=== PATIENT | male | born 1960 | race Caucasian/White ===

== ENCOUNTER 2016-11-09 15:09 | Inpatient (IN) ==
[2016-11-09] MEDS ORDERED: Ipratropium/Albuterol Neb 3 ML IH ONE (15:53)
[2016-11-09] MEDS ORDERED: methylPREDNISolone 125 MG/2 ML VIAL IVP ONE (15:53)
[2016-11-09] MEDS ORDERED: Aspirin 81 MG TAB.CHEW PO STA (15:54)
[2016-11-09 16:11] LABS: Basophils % 0.2 %; Hematocrit 33.8 % (37.5-50.1); Red Cell Distribution Width 16.8 % (11.5-14.5)
[2016-11-09 16:13] LABS: Eosinophils # 0.3 K/mcL (0.0-0.6); Eosinophils % 2.2 %; Hemoglobin 9.7 g/dL (12.9-16.9); Immature Granulocytes % 0.5 % (0-4); Lymphocytes # 1.6 K/mcL (0.6-4.6); Lymphocytes % 12.7 %; Mean Corpuscular HGB Conc 28.7 g/dL (31.6-35.5); Mean Corpuscular Hemoglobin 28.1 pg (28.0-33.3); Mean Platelet Volume 11.1 fL (9.4-12.4); Monocytes # 1.3 K/mcL (0.0-1.3); Monocytes % 10.2 %; Neutrophils # 9.4 K/mcL (1.6-8.9); Nucleated Red Blood Cells 0.2 /100 WBC (0); Platelet Count 224 K/mcL (140-400); Red Blood Count 3.45 M/mcL (4.19-5.50); Segmented Neutrophils % 74.2 %
[2016-11-09 16:23] LABS: BUN/Creatinine Ratio 10 (6-26); Blood Urea Nitrogen 7 mg/dL (8-26); Calcium 9.4 mg/dL (8.6-10.8); Carbon Dioxide 39 mEq/L (19-29); Chloride 86 mEq/L (98-109); Glucose 114 mg/dL (70-99); Osmolality,Calculated 271 (280-300); Potassium 4.5 mEq/L (3.5-4.5); Sodium 131 mEq/L (136-145); eGFR For African Americans > 60 (> 60); eGFR For Non-African Americans > 60 (> 60)
[2016-11-09 17:01] LABS: Platelet Estimate Normal (Normal); Polychromasia 1+ (Not Present); Stomatocytes 1+ (Not Present)
[2016-11-09 17:36] LABS: VBG HCO3 44.2 mEq/L (21-27); VBG PH 7.29 pH Units (7.32-7.42)
--- NOTE | 2016-11-09 18:20 | Emergency Department Note ---
Disposition Clinical Impression: COPD exacerbation CHF (congestive heart failure) Qualifiers: Congestive heart failure type: unspecified congestive heart failure type Congestive heart failure chronicity: unspecified congestive heart failure chronicity Qualified Code(s): I50.9 - Heart failure, unspecified Disposition: Admitted As Inpatient Condition: Serious SOB HPI - General Chief Complaint: ED Shortness of Breath/Dyspnea Stated Complaint: KENNA Time Seen by Provider: 11/09/16 15:47 Source: patient, family Mode of arrival: wheelchair Limitations: no limitations Nursing Notes Reviewed: Yes Vital Signs Reviewed: Yes - History of Present Illness Patient here for evaluation of shortness of breath. Patient was sent from outpatient office for evaluation of shortness of breath. Patient appeared dyspneic and was sent for further evaluation. Patient lives at home with 2 L of oxygen on a daily basis. Patient was recently admitted to a different hospital and treated for COPD exacerbation and pneumonia. Patient finished his outpatient antibiotics including what is likely Levaquin. Patient states that he has been feeling more short of breath at home and has increased his home oxygen 4 L. Patient had some associated chest pain with exertion earlier today today. Patient's chest pain last approximately minutes and self resolved. Patient's current symptoms include dyspnea at rest. Patient was in the lobby due to extended wait times and was without oxygen. Initial pulse ox reading low. Patient placed on BiPAP secondary to tachypnea and hypoxia. - Related Data Home Medications Medication Instructions Recorded Confirmed Albuterol Sulfate [Albuterol 2 puff IH Q4HR PRN 08/07/15 11/09/16 Inhaler] Aspirin [Adult Low Dose Aspirin EC] 81 mg PO DAILY 08/07/15 11/09/16 Metoprolol XL (24 HR) Succ [Toprol 25 mg PO DAILY 08/07/15 11/09/16 Xl] Omeprazole [PriLOSEC] 20 mg PO DAILY 08/07/15 11/09/16 Oxygen 4 l NS AD 12/19/15 11/09/16 Aclidinium [place] [Tudorza 400 mcg IH BID 11/09/16 11/09/16 Pressair] Ipratropium/Albuterol Neb [Duoneb] 3 ml IH Q4H PRN 11/09/16 11/09/16 Mometasone/Formoterol [Dulera 200 2 puff IH BID 11/09/16 11/09/16 Mcg/5 Mcg Inhaler] Previous Rx's Medication Instructions Recorded Clopidogrel [Plavix] 75 mg PO DAILY #30 tablet 09/20/15 Allergies Allergy/AdvReac Type Severity Reaction Status Date / Time No Known Allergies Allergy Verified 12/19/15 07:05 Review of Systems: CONSTITUTIONAL: Weakness and fatigue No weight loss, fever, chills, HEENT: Eyes: No visual changes. Ears, Nose, Throat: No hearing loss, difficulty talking or unable to swallow. SKIN: No rash or itching. CARDIOVASCULAR: Chest pain RESPIRATORY: Shortness of breath GASTROINTESTINAL: No anorexia, nausea, vomiting or diarrhea. No abdominal pain or blood. GENITOURINARY: No burning on urination or hematuria. NEUROLOGICAL: No headache, dizziness, syncope, paralysis, ataxia, numbness or tingling in the extremities. No change in bowel or bladder control. MUSCULOSKELETAL: No muscle pain, back pain, joint pain or stiffness. Past Medical History - Past Medical History Medical history: Reports: COPD, hypertension, peripheral artery disease, other Surgical history: Reports: vascular surgery, other Psychiatric history: Reports: anxiety, depression - Social History Smoking Status: Current every day smoker Smokeless Tobacco Status: No Alcohol use: Reports: rarely Drug use: Reports: none Physical Exam General appearance: Tachypnea speaking in partial sentences Eyes: anicteric sclerae, moist conjunctivae; PERRL HENT: Atraumatic; oropharynx clear with moist mucous membranes and no mucosal ulcerations Neck: Normal inspection; Trachea midline; FROM, supple Lungs: Diffusely diminished CV: RRR, no MRGs Abdomen: Soft, non-tender; no rebound or gaurding Extremities: No peripheral edema or extremity lymphadenopathy Skin: Normal temperature; no rash, ulcers or lesions Psych: Appropriate mood and affect Neuro: alert and oriented to person, place and time - General Limitations: no limitations General appearance: alert, in no apparent distress Course - Reevaluation(s) Reevaluation #1: Patient symptoms partially improved with steroids and albuterol treatments. Patient chest x-ray is negative for pneumonia. Concerning for CHF. Patient has acute on chronic respiratory acidosis. Will discuss with the hospitalist team to admit the patient for further management. - Consultations Consultation #1: Discussed with the hospitalist Ramón. Patient except that for admission. Vital Signs Temperature 97.9 F 11/09/16 15:36 Pulse Rate 105 11/09/16 15:36 Respiratory Rate 20 11/09/16 15:36 Blood Pressure 117/68 11/09/16 15:36 O2 Sat by Pulse Oximetry 64 11/09/16 15:36 Temperature 97.9 F 11/09/16 15:36 Pulse Rate 97 11/09/16 19:39 Respiratory Rate 22 11/09/16 20:05 Blood Pressure 130/73 11/09/16 19:39 O2 Sat by Pulse Oximetry 90 11/09/16 20:05 Oxygen Delivery Oxygen Delivery Bipap Shortness of Breath/Dyspnea - Medical Records Medical records reviewed: Yes I reviewed the patient's medical records. - Lab Data Lab results reviewed: Yes I reviewed the patient's lab results. Result diagrams: 11/09/16 16:01 11/09/16 16:01 Lab Results 11/09/16 11/09/16 11/09/16 Range/Units 16:01 16:01 16:01 WBC 12.6 H (4.3-11.1) K/mcL RBC 3.45 L (4.19-5.50) M/mcL Hgb 9.7 L (12.9-16.9) g/dL Hct 33.8 L (37.5-50.1) % MCV 98.0 (83.0-100.0) fL MCH 28.1 (28.0-33.3) pg MCHC 28.7 L (31.6-35.5) g/dL RDW 16.8 H (11.5-14.5) % Plt Count 224 (140-400) K/mcL MPV 11.1 (9.4-12.4) fL Immature Gran % 0.5 (0-4) % Seg Neutrophils % 74.2 % Lymphocytes % 12.7 % Monocytes % 10.2 % Eosinophils % 2.2 % Basophils % 0.2 % Neutrophils # 9.4 H (1.6-8.9) K/mcL Lymphocytes # 1.6 (0.6-4.6) K/mcL Monocytes # 1.3 (0.0-1.3) K/mcL Eosinophils # 0.3 (0.0-0.6) K/mcL Basophils # 0.0 (0.0-0.2) K/mcL Nucleated RBCs/100 WBC 0.2 H (0) /100 WBC Platelet Estimate Normal (Normal) Polychromasia 1+ A (Not Present) Stomatocytes 1+ A (Not Present) VBG pH (7.32-7.42) pH Units VBG pCO2 (41-51) mmHg VBG pO2 (25-40) mmHg VBG HCO3 (21-27) mEq/L Sodium 131 L (136-145) mEq/L Potassium 4.5 (3.5-4.5) mEq/L Chloride 86 L (98-109) mEq/L Carbon Dioxide 39 H (19-29) mEq/L BUN 7 L (8-26) mg/dL Creatinine 0.71 L (0.72-1.25) mg/dL Est GFR ( Amer) > 60 (> 60) Est GFR (Non-Af Amer) > 60 (> 60) BUN/Creatinine Ratio 10 (6-26) Glucose 114 H (70-99) mg/dL Calculated Osmolality 271 L (280-300) Calcium 9.4 (8.6-10.8) mg/dL Troponin I 0.00 (0-0.03) ng/mL B-Natriuretic Peptide (0-100) pg/mL 11/09/16 11/09/16 Range/Units 16:01 17:21 WBC (4.3-11.1) K/mcL RBC (4.19-5.50) M/mcL Hgb (12.9-16.9) g/dL Hct (37.5-50.1) % MCV (83.0-100.0) fL MCH (28.0-33.3) pg MCHC (31.6-35.5) g/dL RDW (11.5-14.5) % Plt Count (140-400) K/mcL MPV (9.4-12.4) fL Immature Gran % (0-4) % Seg Neutrophils % % Lymphocytes % % Monocytes % % Eosinophils % % Basophils % % Neutrophils # (1.6-8.9) K/mcL Lymphocytes # (0.6-4.6) K/mcL Monocytes # (0.0-1.3) K/mcL Eosinophils # (0.0-0.6) K/mcL Basophils # (0.0-0.2) K/mcL Nucleated RBCs/100 WBC (0) /100 WBC Platelet Estimate (Normal) Polychromasia (Not Present) Stomatocytes (Not Present) VBG pH 7.29 L (7.32-7.42) pH Units VBG pCO2 92 H (41-51) mmHg VBG pO2 41 H (25-40) mmHg VBG HCO3 44.2 H (21-27) mEq/L Sodium (136-145) mEq/L Potassium (3.5-4.5) mEq/L Chloride (98-109) mEq/L Carbon Dioxide (19-29) mEq/L BUN (8-26) mg/dL Creatinine (0.72-1.25) mg/dL Est GFR ( Amer) (> 60) Est GFR (Non-Af Amer) (> 60) BUN/Creatinine Ratio (6-26) Glucose (70-99) mg/dL Calculated Osmolality (280-300) Calcium (8.6-10.8) mg/dL Troponin I (0-0.03) ng/mL B-Natriuretic Peptide 182 H (0-100) pg/mL - Radiology Data Radiology results reviewed: Yes I reviewed the patient's radiology results. - EKG Data EKG attestation: Yes I reviewed and interpreted this EKG. EKG results narrative: EKG shows sinus tachycardia at a ventricular rate of 103. MS interval 131. QRS 106. Patient has no significant ST elevations or depressions. Nonspecific T-wave changes.. Attestation Statement - Attestation Attestation: I personally interviewed and examined this patient and my medical decision- making was reviewed with the Resident Physician, Dr. Pereira. I agree with the documented findings, disposition and treatment plan as described except to the extent set forth below. Patient is a 56-year-old white male with a history of COPD who presents to the emergency department today with gradually worsening shortness of breath over the past week. Patient states last 2 days he has been significantly short of breath and states that he has not been using his nighttime CPAP due to difficulty tolerating the mask. Patient reports he was hospitalized a few weeks ago and [facility] for an exacerbation of his COPD. At that time he was on antibiotics which he has completed as instructed and is no longer on steroids. Patient denies any fevers or chills, does complain of some left chest wall tightness and some nonproductive cough. Patient arrives in respiratory distress with tachypnea and increased work of breathing associated with significant hypoxia on room air. Patient is normally on 2 L nasal cannula oxygen at home at all times. Patient's physical exam findings as documented. Patient was seen on arrival due to low pulse ox, patient was placed on supplemental O2 by nasal cannula, aerosols were initiated, IV steroids were ordered and BiPAP was initiated. Patient had EKG, labs, and chest x-ray for further evaluation of shortness of breath. Patient's EKG was negative for any acute ischemia. Patient's chest x-ray showed cardiomegaly with mild pulmonary congestion no infiltrates. Patient's labs show a mild elevation in his BNP with a negative troponin. Patient's VBG was consistent with CO2 retention and acidosis. We will continue patient on BiPAP at this time, and admit the patient for further evaluation of COPD exacerbation as well as mild CHF. Patient with mild improvement in his work of breathing at this time. Patient remained hemodynamically stable following BiPAP administration.
[2016-11-09] MEDS ORDERED: Ipratropium/Albuterol Neb 3 ML IH PRN (21:43)
[2016-11-09] MEDS ORDERED: Naloxone 0.4 MG/ML INJ IVP PRN (21:45)
[2016-11-09] MEDS ORDERED: Acetaminophen 325 MG TABLET PO PRN (21:45)
--- NOTE | 2016-11-09 21:51 | Internal Med History&Physical ---
Date of Encounter: 11/09/16 Time of Encounter: 21:48 Assessment and Plan (1) CHF (congestive heart failure) Current visit: Yes Status: Acute lasix 40mg BID IV, I/Os, fluid restriction, low salt diet Qualifiers: Congestive heart failure type: combined Congestive heart failure chronicity : acute on chronic Qualified Code(s): I50.43 - Acute on chronic combined systolic (congestive) and diastolic (congestive) heart failure (2) COPD exacerbation Current visit: Yes Status: Acute duonebs, IV solumedrol, azithromycin therapy (3) Unspecified essential hypertension Current visit: No Status: Chronic continue med (4) Tobacco abuse Current visit: No Status: Chronic cessation discussed. nicotine patch ordered Internal Medicine - H&P: HPI Chief complaint: SOB History of present illness: Mr. 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 He reports baseline 2 L NC and uses NIPPV in the evening but reports limited compliance. In the last 1 month at least, he has been having slow decline in respiratory status and has been needing to increase his oxygen to 4 L. SOB worse on exertion, better with rest. Associated with b/l LE swelling and subjective weight gain on review. Some associated non-specific poorly descriptive chest symptoms. Past Med Surg Social Fam HX - Past Medical History Medical history: COPD, hypertension, peripheral artery disease, other Psychiatric history: anxiety, depression - Past Surgical History Surgical History: vascular surgery, other - Social History Smoking Status: Current every day smoker Smokeless Tobacco Status: No Alcohol use: rarely Drug use: none - Family History Father Hx Family Cardiac Disorders: Yes (HYPERTENSION.) Internal Medicine - H&P: Meds Albuterol Sulfate [Albuterol Inhaler] 2 puff IH Q4HR PRN 08/07/15 [History] Aspirin [Adult Low Dose Aspirin EC] 81 mg PO DAILY 08/07/15 [History] Metoprolol XL (24 HR) Succ [Toprol Xl] 25 mg PO DAILY 08/07/15 [History] Omeprazole [PriLOSEC] 20 mg PO DAILY 08/07/15 [History] Clopidogrel [Plavix] 75 mg PO DAILY #30 tablet 09/20/15 [Rx] Oxygen 4 l NS AD 12/19/15 [History] Aclidinium [place] [Tudorza Pressair] 400 mcg IH BID 11/09/16 [History] Ipratropium/Albuterol Neb [Duoneb] 3 ml IH Q4H PRN 11/09/16 [History] Mometasone/Formoterol [Dulera 200 Mcg/5 Mcg Inhaler] 2 puff IH BID 11/09/16 [ History] Allergies No Known Allergies Allergy (Verified 12/19/15 07:05) All Systems PM: A 10-system review of systems was performed and is negative for pertinent findings except as documented above in the HPI. Review of systems: ROS 14 point review of systems reviewed as best as possible given presentation. Pertinent positive or negative as per HPI or otherwise reviewed as negative - Constitutional Vitals: Temp Pulse Resp BP Pulse Ox 98.5 F 96 19 131/77 94 11/09/16 21:28 11/09/16 21:28 11/09/16 21:28 11/09/16 21:28 11/09/16 21:28 Exam: General - AAO x 3 Psych - Appropriate affect/speech. No agitation Eyes - CARRIE. Eye lids intact. No scleral icterus ENT - Oral mucosa pink, dentition intact. External ear clear/dry/intact. No thyromegaly Lymphatics - No cervical/inguinal lympadenopathy Neuro - No gross peripheral or central neuro deficits with intact CN 2-12 exam Heart - Sinus. RRR. S1 and S2 present. No added HS/murmurs appreciated. No elevated JVD appreciated. +1 calf swellings Lung - Adequate air entry b/l, diffuse wheezes and crackles bilaterally GI - Soft, non-tender. No hepatosplenomegaly/ascities. BS+ - No CVA/suprapubic tenderness or palpable bladder distension Skin - Intact. No rash/petechiae/ecchymosis. Warm extremities MSK - Joints with normal ROM. No joint swellings Internal Med - H&P Results - Labs CBC & Chem 7: 11/09/16 16:01 11/09/16 16:01
[2016-11-09] MEDS: Azithromycin 500 MG in D5% in Water 250 ML IVPB SCH (22:27)
[2016-11-09] MEDS: MethylPREDNISolone 40 MG/ML VIAL IVP SCH (22:27)
[2016-11-09] MEDS: Ipratropium/Albuterol Neb 3 ML IH SCH (22:37)
[2016-11-09] MEDS: Nicotine 14 MG PATCH.TD24 TD SCH (23:18)
[2016-11-10 03:50] LABS: Basophils % 0.1 %; Red Cell Distribution Width 16.7 % (11.5-14.5)
[2016-11-10 03:51] LABS: Hematocrit 36.9 % (37.5-50.1); Hemoglobin 10.5 g/dL (12.9-16.9); Immature Granulocytes % 0.6 % (0-4); Lymphocytes # 0.3 K/mcL (0.6-4.6); Lymphocytes % 3.4 %; Mean Corpuscular HGB Conc 28.5 g/dL (31.6-35.5); Mean Corpuscular Hemoglobin 27.9 pg (28.0-33.3); Mean Corpuscular Volume 98.1 fL (83.0-100.0); Mean Platelet Volume 11.2 fL (9.4-12.4); Monocytes # 0.1 K/mcL (0.0-1.3); Neutrophils # 8.3 K/mcL (1.6-8.9); Platelet Count 220 K/mcL (140-400); Red Blood Count 3.76 M/mcL (4.19-5.50); Segmented Neutrophils % 94.9 %
[2016-11-10 04:09] LABS: BUN/Creatinine Ratio 11 (6-26); Blood Urea Nitrogen 9 mg/dL (8-26); Calcium 9.8 mg/dL (8.6-10.8); Carbon Dioxide 38 mEq/L (19-29); Chloride 92 mEq/L (98-109); Glucose 131 mg/dL (70-99); Magnesium 1.9 mg/dL (1.6-2.6); Osmolality,Calculated 282 (280-300); Sodium 136 mEq/L (136-145); eGFR For African Americans > 60 (> 60); eGFR For Non-African Americans > 60 (> 60)
[2016-11-10 04:12] LABS: Potassium 5.7 mEq/L (3.5-4.5)
[2016-11-10] MEDS: *HR* Enoxaparin 40 MG/0.4 ML SYRINGE SQ SCH (05:26)
[2016-11-10] MEDS: MethylPREDNISolone 40 MG/ML VIAL IVP SCH ×3 (05:26→18:32)
[2016-11-10] MEDS: Ipratropium/Albuterol Neb 3 ML IH SCH ×4 (05:47→20:35)
[2016-11-10] MEDS: Nicotine 14 MG PATCH.TD24 TD SCH (08:47)
[2016-11-10] MEDS: Furosemide 40 MG/4 ML VIAL IVP SCH ×2 (08:47→18:33)
[2016-11-10] MEDS: Metoprolol XL (24 HR) Succ 25 MG TAB.ER.24H PO SCH (08:48)
[2016-11-10] MEDS: Aspirin Enteric Coated 81 MG Tablet PO SCH (08:48)
[2016-11-10] MEDS ORDERED: NON-FORMULARY MEDICATION 1 EACH EACH (Mometasone/Formoterol [Dulera 200 Mcg/5 Mcg Inhaler] IH SCH (09:00)
[2016-11-10] MEDS ORDERED: Nicotine 14 MG PATCH.TD24 TD SCH (09:00)
--- NOTE | 2016-11-10 12:18 | Internal Med Progress Note ---
Date of Encounter: 11/10/16 Time of Encounter: 12:16 - Assessment and plan (1) Unspecified essential hypertension Current Visit: Yes Status: Chronic (2) Mixed hyperlipidemia Current Visit: Yes Status: Chronic (3) COPD exacerbation Current Visit: Yes Status: Acute - Subjective Interval history: Mr. Jasbir Yepez is a 56-year-old male presented with acute shortness of breath. He was diagnosed with the congestive heart failure as well as COPD exacerbation. He has underlying history of hypertension. patient seems quite short of breath. His medical treatment intensified. add BiPAP IV steroids increased to 60 mg 8 and nebulizers added with DuoNeb's4 times a day plus albuterol nebs every 2 when necessary and Mucinex 600 twice a day.I suspect his primary problem is a rather than CHF which probably playing a minor role. At least in our record we do nothave any echocardiogram therefore I will order one. He has bilateral leg edema.potassium is 5.7 and [id number] g given. Repeat CBC CMP daily. - Constitutional Vitals: Temp Pulse Resp BP Pulse Ox 98.2 F 100 16 136/67 92 11/10/16 11:10 11/10/16 11:10 11/10/16 11:10 11/10/16 11:10 11/10/16 11:10 - Head Head exam: Present: atraumatic, normocephalic - Eye Eye exam: Present: PERRL, conjuntiva pink, sclera anicteric Pupils: Present: PERRL - Neck Neck exam general surgery: Present: supple, trachea midline. Absent: lymphadenopathy - Respiratory Respiratory exam: Present: decreased breath sounds, rales, rhonchi, wheezes. Absent: accessory muscle use - Cardiovascular Cardiovascular exam: Present: RRR, +S1, +S2. Absent: diastolic murmur, gallop, rubs, systolic murmur - GI/Abdominal GI/Abdominal exam: Present: normal bowel sounds, soft, no peritoneal signs. Absent: distended, tenderness - Extremities Exam Extremities exam: Present: warm, radial pulses palpable and symetrical. Absent : calf tenderness, cyanotic, pedal edema - Neurological Exam Neurological exam: Present: CN II-XII intact, oriented X3, no focal deficits. Absent: pronater drift, facial droop, speech deficit - Skin Skin exam: Present: dry, intact Internal Medicine: Result - Labs CBC & Chem 7: 11/11/16 13:47 11/11/16 13:47 Labs: Short CBC 11/10/16 Range/Units 03:27 WBC 8.7 (4.3-11.1) K/mcL Hgb 10.5 L (12.9-16.9) g/dL Hct 36.9 L (37.5-50.1) % Plt Count 220 (140-400) K/mcL Neutrophils # 8.3 (1.6-8.9) K/mcL BMP 11/10/16 03:27 Sodium 136 Potassium 5.7 H D Chloride 92 L Carbon Dioxide 38 H BUN 9 Creatinine 0.79 Glucose 131 H Calcium 9.8 Cardiac Enzymes 11/09/16 11/10/16 11/10/16 Range/Units 22:08 03:27 09:57 Troponin I 0.00 0.01 0.01 (0-0.03) ng/mL Consult Discharge Plan - Plan Referrals: Niurka Panda, H[employer] SERVICES SALES REPRESENTATIVE [Primary Care Provider] - 11/17/16 1:00 pm
[2016-11-10] MEDS: TUDORZA PRESSAIR 400 MCG IH SCH ×2 (12:44→20:38)
[2016-11-10] MEDS: Azithromycin 500 MG in D5% in Water 250 ML IVPB SCH (21:38)
[2016-11-11] MEDS: MethylPREDNISolone 40 MG/ML VIAL IVP SCH ×3 (00:35→17:35)
[2016-11-11] MEDS: Ipratropium/Albuterol Neb 3 ML IH SCH ×6 (00:57→19:42)
[2016-11-11] MEDS: *HR* Enoxaparin 40 MG/0.4 ML SYRINGE SQ SCH (05:51)
[2016-11-11] MEDS: TUDORZA PRESSAIR 400 MCG IH SCH ×2 (07:40→21:12)
[2016-11-11] MEDS: Metoprolol XL (24 HR) Succ 25 MG TAB.ER.24H PO SCH (09:41)
[2016-11-11] MEDS: Aspirin Enteric Coated 81 MG Tablet PO SCH (09:41)
[2016-11-11] MEDS: Nicotine 14 MG PATCH.TD24 TD SCH (09:41)
[2016-11-11] MEDS: Furosemide 40 MG/4 ML VIAL IVP SCH ×2 (09:41→17:36)
[2016-11-11 14:37] LABS: Basophils % 0.1 %; Lymphocytes % 2.1 %
[2016-11-11 14:38] LABS: Hematocrit 37.2 % (37.5-50.1); Hemoglobin 10.3 g/dL (12.9-16.9); Immature Granulocytes % 0.5 % (0-4); Lymphocytes # 0.3 K/mcL (0.6-4.6); Mean Corpuscular HGB Conc 27.7 g/dL (31.6-35.5); Mean Corpuscular Hemoglobin 27.8 pg (28.0-33.3); Mean Corpuscular Volume 100.3 fL (83.0-100.0); Mean Platelet Volume 11.3 fL (9.4-12.4); Monocytes % 3.5 %; Neutrophils # 11.9 K/mcL (1.6-8.9); Platelet Count 275 K/mcL (140-400); Red Blood Count 3.71 M/mcL (4.19-5.50); Red Cell Distribution Width 16.5 % (11.5-14.5); Segmented Neutrophils % 93.8 %
[2016-11-11 14:48] LABS: Alanine Aminotransferase 13 Units/L (0-55); Albumin/Globulin Ratio 0.8 (1.1-2.2); Alkaline Phosphatase 149 Units/L (38-126); Aspartate Amino Transferase 12 Units/L (5-34); BUN/Creatinine Ratio 17 (6-26); Bilirubin,Total 0.5 mg/dL (0.2-1.2); Blood Urea Nitrogen 16 mg/dL (8-26); Calcium 9.6 mg/dL (8.6-10.8); Chloride 86 mEq/L (98-109); Globulin 3.9 g/dL (2.4-3.5); Glucose 262 mg/dL (70-99); Osmolality,Calculated 294 (280-300); Sodium 137 mEq/L (136-145); Total Protein 6.9 g/dL (6.0-8.3); eGFR For African Americans > 60 (> 60); eGFR For Non-African Americans > 60 (> 60)
[2016-11-11 14:56] LABS: Monocytes # 0.4 K/mcL (0.0-1.3)
[2016-11-11 14:58] LABS: Large Platelets Present (Not Present); Platelet Estimate Normal (Normal); Polychromasia 1+ (Not Present)
[2016-11-11 14:59] LABS: Hypochromasia Present (Not Present)
[2016-11-11 15:02] LABS: Potassium 4.4 mEq/L (3.5-4.5)
[2016-11-11 15:04] LABS: Carbon Dioxide 45 mEq/L (19-29)
--- NOTE | 2016-11-11 18:44 | Internal Med Progress Note ---
Date of Encounter: 11/11/16 Time of Encounter: 18:43 - Assessment and plan (1) Unspecified essential hypertension Current Visit: Yes Status: Chronic (2) Mixed hyperlipidemia Current Visit: Yes Status: Chronic (3) COPD exacerbation Current Visit: Yes Status: Acute - Subjective Interval history: Mr. Jasbir Yepez is a 56-year-old male presented with acute shortness of breath. He was diagnosed with the congestive heart failure as well as COPD exacerbation. He has underlying history of hypertension. patient seems quite short of breath. His medical treatment intensified. add BiPAP IV steroids increased to 60 mg 8 and nebulizers added with DuoNeb's4 times a day plus albuterol nebs every 2 when necessary and Mucinex 600 twice a day.I suspect his primary problem is a rather than CHF which probably playing a minor role. At least in our record we do nothave any echocardiogram therefore I will order one. He has bilateral leg edema.potassium is 5.7 and [id number] g given. Repeat CBC CMP daily. 11/11 much better today Seems to be doing okay now continue current treatment - Constitutional Vitals: Temp Pulse Resp BP Pulse Ox 98.4 F 105 16 133/64 90 11/11/16 18:39 11/11/16 18:39 11/11/16 18:39 11/11/16 18:39 11/11/16 18:39 - Head Head exam: Present: atraumatic, normocephalic - Eye Eye exam: Present: PERRL, conjuntiva pink, sclera anicteric Pupils: Present: PERRL - Neck Neck exam general surgery: Present: supple, trachea midline. Absent: lymphadenopathy - Respiratory Respiratory exam: Present: decreased breath sounds, rhonchi, wheezes. Absent: accessory muscle use, rales - Cardiovascular Cardiovascular exam: Present: RRR, +S1, +S2. Absent: diastolic murmur, gallop, rubs, systolic murmur - GI/Abdominal GI/Abdominal exam: Present: normal bowel sounds, soft, no peritoneal signs. Absent: distended, tenderness - Extremities Exam Extremities exam: Present: pedal edema, warm, radial pulses palpable and symetrical. Absent: calf tenderness, cyanotic - Neurological Exam Neurological exam: Present: CN II-XII intact, oriented X3, no focal deficits. Absent: pronater drift, facial droop, speech deficit - Skin Skin exam: Present: dry, intact Internal Medicine: Result - Labs CBC & Chem 7: 11/11/16 13:47 11/11/16 13:47 Labs: Short CBC 11/11/16 Range/Units 13:47 WBC 12.7 H (4.3-11.1) K/mcL Hgb 10.3 L (12.9-16.9) g/dL Hct 37.2 L (37.5-50.1) % Plt Count 275 (140-400) K/mcL Neutrophils # 11.9 H (1.6-8.9) K/mcL BMP 11/11/16 13:47 Sodium 137 Potassium 4.4 D Chloride 86 L Carbon Dioxide 45 H* BUN 16 Creatinine 0.93 Glucose 262 H Calcium 9.6 Liver Function 11/11/16 Range/Units 13:47 Total Bilirubin 0.5 (0.2-1.2) mg/dL AST 12 (5-34) Units/L ALT 13 (0-55) Units/L Alkaline Phosphatase 149 H (38-126) Units/L Albumin 3.0 L (3.5-5.0) g/dL Consult Discharge Plan - Plan Referrals: Niurka Panda, BALAJI [Primary Care Provider] - 11/17/16 1:00 pm
[2016-11-11] MEDS: Azithromycin 500 MG in D5% in Water 250 ML IVPB SCH (21:12)
[2016-11-12] MEDS: MethylPREDNISolone 40 MG/ML VIAL IVP SCH ×4 (00:06→23:54)
[2016-11-12] MEDS: Ipratropium/Albuterol Neb 3 ML IH SCH ×7 (00:07→23:21)
[2016-11-12 03:53] LABS: Basophils % 0.1 %; Hemoglobin 9.8 g/dL (12.9-16.9); Mean Platelet Volume 11.1 fL (9.4-12.4)
[2016-11-12 03:55] LABS: Hematocrit 35.3 % (37.5-50.1); Immature Granulocytes % 0.4 % (0-4); Lymphocytes # 0.4 K/mcL (0.6-4.6); Lymphocytes % 3.5 %; Mean Corpuscular HGB Conc 27.8 g/dL (31.6-35.5); Mean Corpuscular Hemoglobin 27.4 pg (28.0-33.3); Mean Corpuscular Volume 98.6 fL (83.0-100.0); Monocytes # 0.3 K/mcL (0.0-1.3); Neutrophils # 10.3 K/mcL (1.6-8.9); Platelet Count 261 K/mcL (140-400); Red Blood Count 3.58 M/mcL (4.19-5.50); Red Cell Distribution Width 16.2 % (11.5-14.5)
[2016-11-12 04:10] LABS: Alanine Aminotransferase 12 Units/L (0-55); Albumin 2.9 g/dL (3.5-5.0); Albumin/Globulin Ratio 0.9 (1.1-2.2); Alkaline Phosphatase 158 Units/L (38-126); Aspartate Amino Transferase 10 Units/L (5-34); BUN/Creatinine Ratio 20 (6-26); Bilirubin,Total 0.3 mg/dL (0.2-1.2); Blood Urea Nitrogen 17 mg/dL (8-26); Calcium 9.5 mg/dL (8.6-10.8); Chloride 88 mEq/L (98-109); Globulin 3.4 g/dL (2.4-3.5); Glucose 246 mg/dL (70-99); Osmolality,Calculated 294 (280-300); Potassium 4.5 mEq/L (3.5-4.5); Sodium 137 mEq/L (136-145); Total Protein 6.3 g/dL (6.0-8.3); eGFR For African Americans > 60 (> 60); eGFR For Non-African Americans > 60 (> 60)
[2016-11-12 04:17] LABS: Carbon Dioxide 45 mEq/L (19-29)
[2016-11-12 04:42] LABS: Hypochromasia Present (Not Present); Large Platelets Present (Not Present); Platelet Estimate Normal (Normal)
[2016-11-12] MEDS: *HR* Enoxaparin 40 MG/0.4 ML SYRINGE SQ SCH (06:24)
[2016-11-12] MEDS: Furosemide 40 MG/4 ML VIAL IVP SCH (08:37)
[2016-11-12] MEDS: Aspirin Enteric Coated 81 MG Tablet PO SCH (08:37)
[2016-11-12] MEDS: Metoprolol XL (24 HR) Succ 25 MG TAB.ER.24H PO SCH (08:37)
[2016-11-12] MEDS: Nicotine 14 MG PATCH.TD24 TD SCH (08:38)
[2016-11-12] MEDS: TUDORZA PRESSAIR 400 MCG IH SCH (08:56)
--- NOTE | 2016-11-12 09:31 | Internal Med Progress Note ---
Date of Encounter: 11/13/16 Time of Encounter: 09:25 - Assessment and plan (1) COPD exacerbation Current Visit: Yes Status: Acute (2) CHF (congestive heart failure) Current Visit: Yes Status: Acute Assessment and plan: Plan to diurese echo pending Qualifiers: Congestive heart failure type: combined Congestive heart failure chronicity : acute on chronic Qualified Code(s): I50.43 - Acute on chronic combined systolic (congestive) and diastolic (congestive) heart failure (3) Unspecified essential hypertension Current Visit: Yes Status: Chronic Assessment and plan: Continue home medication and monitor daily (4) Mixed hyperlipidemia Current Visit: Yes Status: Chronic (5) Hyperkalemia Current Visit: Yes Status: Acute Assessment and plan: Potassium was elevated and I am not sure why but in any case he gave Kayexalate and that corrected the problem and on repeat test potassium is still stable - Subjective Interval history: Mr. Jasbir Yepez is a 56-year-old male presented with acute shortness of breath. He was diagnosed with the congestive heart failure as well as COPD exacerbation. He has underlying history of hypertension. patient seems quite short of breath. His medical treatment intensified. add BiPAP IV steroids increased to 60 mg 8 and nebulizers added with DuoNeb's4 times a day plus albuterol nebs every 2 when necessary and Mucinex 600 twice a day.I suspect his primary problem is a COPD rather than CHF which probably is playing a minor role. At least in our record we do not have any echocardiogram therefore I will order one. He has bilateral leg edema.potassium is 5.7 and [id number] g given. Repeat CBC CMP daily. 8/2 much better today Seems to be doing okay now continue current treatment 8/3 negative fluid balance raising bicarbonate level though renal functions are normal. We will switch to by mouth Lasix. Blood sugars are elevated due to steroids therefore Levemir 10 units added at night. Hyper kalemia is resolved. His shortness of breath family was due to both COPD and CHF but at this time COPD exacerbation is a major cause. Echo pending and will change his Lasix to by mouth. His oxygenation has improved and now he has been switched from 40% to 4 L with oxygen saturation around 96%. Plan to continue current treatment and slowly taper in next couple of days after which we will think about discharging him. - Constitutional Vitals: Temp Pulse Resp BP Pulse Ox 97.8 F 82 23 148/77 96 11/12/16 07:00 11/12/16 07:00 11/12/16 07:00 11/12/16 07:00 11/12/16 07:00 - Head Head exam: Present: atraumatic, normocephalic - Eye Eye exam: Present: PERRL, conjuntiva pink, sclera anicteric Pupils: Present: PERRL - Neck Neck exam general surgery: Present: supple, trachea midline. Absent: lymphadenopathy - Respiratory Respiratory exam: Present: CTAB. Absent: accessory muscle use, rales, rhonchi, wheezes - Cardiovascular Cardiovascular exam: Present: RRR, +S1, +S2. Absent: diastolic murmur, gallop, rubs, systolic murmur - GI/Abdominal GI/Abdominal exam: Present: normal bowel sounds, soft, no peritoneal signs. Absent: distended, tenderness - Extremities Exam Extremities exam: Present: warm, radial pulses palpable and symetrical. Absent : calf tenderness, cyanotic, pedal edema - Neurological Exam Neurological exam: Present: CN II-XII intact, oriented X3, no focal deficits. Absent: pronater drift, facial droop, speech deficit - Skin Skin exam: Present: dry, intact Internal Medicine: Result - Labs CBC & Chem 7: 11/13/16 03:04 11/13/16 03:04 Labs: Short CBC 11/11/16 11/12/16 Range/Units 13:47 03:16 WBC 12.7 H 11.1 (4.3-11.1) K/mcL Hgb 10.3 L 9.8 L (12.9-16.9) g/dL Hct 37.2 L 35.3 L (37.5-50.1) % Plt Count 275 261 (140-400) K/mcL Neutrophils # 11.9 H 10.3 H (1.6-8.9) K/mcL BMP 11/11/16 11/12/16 13:47 03:16 Sodium 137 137 Potassium 4.4 D 4.5 Chloride 86 L 88 L Carbon Dioxide 45 H* 45 H* BUN 16 17 Creatinine 0.93 0.85 Glucose 262 H 246 H Calcium 9.6 9.5 Liver Function 11/11/16 11/12/16 Range/Units 13:47 03:16 Total Bilirubin 0.5 0.3 (0.2-1.2) mg/dL AST 12 10 (5-34) Units/L ALT 13 12 (0-55) Units/L Alkaline Phosphatase 149 H 158 H (38-126) Units/L Albumin 3.0 L 2.9 L (3.5-5.0) g/dL - Impressions Impressions Echocardiogram 11/12/16 18:39 Impressions: LVEF 60%. Mild concentric left ventricular hypertrophy. There is evidence of moderate diastolic dysfunction of the left ventricle with elevated filling pressures. Normal right ventricular size and function. Mild mitral regurgitation. Mild tricuspid regurgitation. No pulmonary hypertension. Left Ventricular Wall Motion: Rest Echo Findings All wall segments showed normal motion. Findings: Study Quality * Technically adequate exam. ECG Findings * Normal sinus rhythm. Left Ventricle * LVEF 60%. * Mild concentric left ventricular hypertrophy. * Moderate left ventricular diastolic dysfunction with elevated filling pressures by E/e'. Aorta * Normally sized aortic root. Aortic Valve * No aortic regurgitation. * Trileaflet aortic valve. * No aortic stenosis. Mitral Valve * Normal mitral valve structure. * No mitral stenosis. * Mild mitral regurgitation. Tricuspid Valve * Tricuspid valve not well visualized. * Mild tricuspid regurgitation. * Estimated RA pressure is 3 mmHg. * Estimated RVSP is 35 mmHg. * No pulmonary hypertension. Pulmonic Valve * Pulmonic valve is not well visualized. * No pulmonic stenosis. * No pulmonic regurgitation. Pulmonary Artery * Pulmonary artery not well visualized. Right Ventricle * Normal right ventricular structure and function. Left Atrium * Normal left atrial size. Right Atrium * Normal right atrial size. Interatrial Septum * No evidence of PFO by color Doppler. Pericardium * There is no pericardial effusion present. IVC * Normal IVC dimensions and inspiratory collapse. Consult Discharge Plan - Plan Instructions: Heart Failure (DC), Chronic Obstructive Pulmonary Disease (DC) Referrals: Niurka Panda CNP [Primary Care Provider] - 11/17/16 1:00 pm
[2016-11-12] MEDS: Furosemide 40 MG TABLET PO SCH ×2 (17:02→17:06)
[2016-11-12] MEDS ORDERED: Insulin DETEMIR 100 UNIT/ML X5UNITS SQ SCH (21:00)
[2016-11-12] MEDS ORDERED: Azithromycin 250 MG TABLET PO SCH (21:00)
[2016-11-13 03:43] LABS: Hematocrit 33.8 % (37.5-50.1); Hemoglobin 9.7 g/dL (12.9-16.9); Immature Granulocytes % 0.4 % (0-4); Lymphocytes # 0.3 K/mcL (0.6-4.6); Lymphocytes % 3.3 %; Mean Corpuscular HGB Conc 28.7 g/dL (31.6-35.5); Mean Corpuscular Hemoglobin 27.6 pg (28.0-33.3); Mean Platelet Volume 11.3 fL (9.4-12.4); Monocytes # 0.3 K/mcL (0.0-1.3); Monocytes % 3.7 %; Platelet Count 252 K/mcL (140-400); Red Blood Count 3.52 M/mcL (4.19-5.50); Red Cell Distribution Width 15.9 % (11.5-14.5); Segmented Neutrophils % 92.6 %
[2016-11-13] MEDS: Ipratropium/Albuterol Neb 3 ML IH SCH ×5 (03:46→20:20)
[2016-11-13 04:06] LABS: Alanine Aminotransferase 11 Units/L (0-55); Albumin 2.9 g/dL (3.5-5.0); Albumin/Globulin Ratio 0.9 (1.1-2.2); Alkaline Phosphatase 170 Units/L (38-126); Aspartate Amino Transferase 9 Units/L (5-34); BUN/Creatinine Ratio 22 (6-26); Bilirubin,Total 0.3 mg/dL (0.2-1.2); Blood Urea Nitrogen 20 mg/dL (8-26); Calcium 9.2 mg/dL (8.6-10.8); Carbon Dioxide 38 mEq/L (19-29); Chloride 88 mEq/L (98-109); Globulin 3.2 g/dL (2.4-3.5); Glucose 359 mg/dL (70-99); Osmolality,Calculated 295 (280-300); Potassium 4.1 mEq/L (3.5-4.5); Sodium 134 mEq/L (136-145); Total Protein 6.1 g/dL (6.0-8.3); eGFR For African Americans > 60 (> 60); eGFR For Non-African Americans > 60 (> 60)
[2016-11-13 04:14] LABS: Platelet Estimate Normal (Normal)
[2016-11-13 04:15] LABS: Hypochromasia Present (Not Present)
[2016-11-13] MEDS: *HR* Enoxaparin 40 MG/0.4 ML SYRINGE SQ SCH (06:10)
[2016-11-13] MEDS: Aspirin Enteric Coated 81 MG Tablet PO SCH (09:35)
[2016-11-13] MEDS: Furosemide 40 MG TABLET PO SCH ×2 (09:35→17:22)
[2016-11-13] MEDS: Metoprolol XL (24 HR) Succ 25 MG TAB.ER.24H PO SCH (09:35)
[2016-11-13] MEDS: MethylPREDNISolone 40 MG/ML VIAL IVP SCH ×2 (09:35→17:22)
[2016-11-13] MEDS: Nicotine 14 MG PATCH.TD24 TD SCH (09:39)
[2016-11-13 14:24] VITALS: BP 153/73
--- NOTE | 2016-11-13 17:51 | Discharge Summary ---
Date of Encounter: 11/13/16 Time of Encounter: 17:43 - Discharge Diagnosis (1) COPD exacerbation Priority: Primary Status: Acute (2) CHF (congestive heart failure) Priority: Primary Status: Acute Qualifiers: Congestive heart failure type: combined Congestive heart failure chronicity : acute on chronic Qualified Code(s): I50.43 - Acute on chronic combined systolic (congestive) and diastolic (congestive) heart failure (3) Unspecified essential hypertension Priority: Secondary Status: Chronic (4) Mixed hyperlipidemia Priority: Secondary Status: Chronic (5) Hyperkalemia Priority: Secondary Status: Acute - Discharge Medications Prescriptions: Azithromycin [Zithromax] 500 mg PO Q24H #5 tab Furosemide [Lasix] 40 mg PO DAILY #30 tab GuaiFENesin ER [Mucinex] 600 mg PO BID #20 tab Ipratropium/Albuterol Neb [Duoneb] 3 ml IH Q4H PRN #120 aerosol PRN Reason: Shortness Of Breath predniSONE [PredniSONE] 10 mg PO DAILY #70 tablet Home Medications: Albuterol Sulfate [Albuterol Inhaler] 2 puff IH Q4HR PRN 08/07/15 [History] Aspirin [Adult Low Dose Aspirin EC] 81 mg PO DAILY 08/07/15 [History] Metoprolol XL (24 HR) Succ [Toprol Xl] 25 mg PO DAILY 08/07/15 [History] Omeprazole [PriLOSEC] 20 mg PO DAILY 08/07/15 [History] Clopidogrel [Plavix] 75 mg PO DAILY #30 tablet 09/20/15 [Rx] Oxygen 4 l NS AD 12/19/15 [History] Aclidinium [place] [Tudorza Pressair] 400 mcg IH BID 11/09/16 [History] Mometasone/Formoterol [Dulera 200 Mcg/5 Mcg Inhaler] 2 puff IH BID 11/09/16 [ History] Acetaminophen [Tylenol] 650 mg PO Q6HR PRN tab 11/13/16 [Rx] Azithromycin [Zithromax] 500 mg PO Q24H #5 tab 11/13/16 [Rx] Furosemide [Lasix] 40 mg PO DAILY #30 tab 11/13/16 [Rx] GuaiFENesin ER [Mucinex] 600 mg PO BID #20 tab 11/13/16 [Rx] Ipratropium/Albuterol Neb [Duoneb] 3 ml IH Q4H PRN #120 aerosol 11/13/16 [Rx] predniSONE [PredniSONE] 10 mg PO DAILY #70 tablet 11/13/16 [Rx] Allergies/Adverse Reactions: Allergies No Known Allergies Allergy (Verified 12/19/15 07:05) Procedures/tests Complete & Pending: Procedures Performed prior 72 hours Category Date Time Status EV echocardiogram Routine Y 11/12/16 18:39 Completed Date of admission: 11/09/16 21:45 Primary care physician: Niurka Panda CNP Discharging clinician: Al Velásquez Anticipated date of discharge: 11/13/16 - Patient Status Disposition: Home, Self-Care Condition: Serious Overall status at discharge: patient is progressing back to baseline - Discharge Instructions Instructions: Heart Failure (DC), Chronic Obstructive Pulmonary Disease (DC) Follow Up With: Niurka Panda CNP [Primary Care Provider] - 11/17/16 1:00 pm - Diet and Activity Activity: resume usual activities as tolerated Diet: advance to your usual diet Hospital course: Mr. Jasbir Yepez is a 56-year-old male presented with acute shortness of breath. He was diagnosed with the congestive heart failure as well as COPD exacerbation. He has underlying history of hypertension. patient seems quite short of breath. His medical treatment intensified. add BiPAP IV steroids increased to 60 mg 8 and nebulizers added with DuoNeb's4 times a day plus albuterol nebs every 2 when necessary and Mucinex 600 twice a day.I suspect his primary problem is a COPD rather than CHF which probably is playing a minor role. During this hospitalization echocardiogram was done which showed normal EF was 65% with diastolic dysfunction no significant valvular abnormality. negative fluid balance maintained and renal functions are normal. We will switch to by mouth Lasix. Blood sugars are elevated due to steroids otherwise he does not have history of diabetes. Hyperkalemia is resolved. His shortness of breath was due to both COPD and CHF but at this time COPD exacerbation is a major cause. Echo pending and will change his Lasix to by mouth. His oxygenation has improved and now he has been switched from 40% to 4 L with oxygen saturation around 96%. Patient is easier to go home. We offer him to stay for another couple days. He declined and would go home. He promised to return if symptoms should worsen. - Time Spent with Patient Total time spent providing and/or coordinating discharge services: Greater than 30 minutes - Constitutional Vitals: Temp Pulse Resp BP Pulse Ox 97.7 F 100 18 153/73 96 11/13/16 14:21 11/13/16 14:21 11/13/16 16:16 11/13/16 14:21 11/13/16 16:16 - Head Head exam: Present: atraumatic, normocephalic - Eye Eye exam: Present: PERRL, conjuntiva pink, sclera anicteric Pupils: Present: PERRL - Neck Neck exam general surgery: Present: supple, trachea midline. Absent: lymphadenopathy - Respiratory Respiratory exam: Present: CTAB, wheezes. Absent: accessory muscle use, rales, rhonchi Additional comments: Breath sounds have improved mild scattered wheezing - Cardiovascular Cardiovascular exam: Present: RRR, +S1, +S2. Absent: diastolic murmur, gallop, rubs, systolic murmur - GI/Abdominal GI/Abdominal exam: Present: normal bowel sounds, soft, no peritoneal signs. Absent: distended, tenderness - Extremities Exam Extremities exam: Present: warm, radial pulses palpable and symetrical. Absent : calf tenderness, cyanotic, pedal edema - Neurological Exam Neurological exam: Present: CN II-XII intact, oriented X3, no focal deficits. Absent: pronater drift, facial droop, speech deficit - Skin Skin exam: Present: dry, intact
[2016-11-13] MEDS ORDERED: Insulin DETEMIR 100 UNIT/ML X5UNITS SQ SCH (21:00)
== END 2016-11-13 19:15 | disposition home or self-care (01) | DRG 140 ==
LOC: 2NENU 15:09 → EMEROO 15:09 → 2NENU 19:50
PROVIDERS: ADMIT Internal Medicine; ATTEND Internal Medicine

== ENCOUNTER 2018-01-07 01:24 | Inpatient (IN) ==
[2018-01-07] MEDS ORDERED: Furosemide 40 MG/4 ML VIAL IVP ONE (04:36)
[2018-01-07] MEDS ORDERED: Naloxone 0.4 MG/ML INJ IVP PRN (04:42)
[2018-01-07] MEDS ORDERED: Dexmedetomidine HCl 400 MCG/100 ML MLS IVC ONE (04:42)
[2018-01-07 04:49] LABS: ABG Base Excess 13 mEq/L (-2 to 3); ABG HCO3 43 mEq/L (21-27); ABG Oxygen Saturation 92 % (95-98); ABG PCO2 72 mmHg (35-45); ABG PH 7.38 pH Units (7.32-7.45); ABG PO2 68 mmHg (85-104); ABG TCO2 45 mEq/L (20-26); Blood Gas Modality PRVC; Blood Gas PEEP 5 cm H2O; Blood Gas Respiration Rate 14; Blood Gas VT 500 cc
--- NOTE | 2018-01-07 04:53 | Internal Med History&Physical ---
<Daryl Rivera - Last Filed: 01/07/18 04:48> Date of Encounter: 01/07/18 Time of Encounter: 04:48 Internal Medicine - H&P: HPI Chief complaint: Dyspnea History of present illness: Mr. Yepez is a 57 year old male with history of peripheral vascular disease, severe COPD, heart failure with preserved ejection fraction who presented from [facility] emergency department due to acute on chronic respiratory failure, intubated on the ventilator. History is somewhat limited. Apparently the patient was transported from [facility] to [facility] due to decreased lower extremity pulses. In the emergency department the patient apparently developed shortness of breath and his respiratory status continued to decline to the point that he was intubated. Upon arrival patient is intubated on the ventilator but is awake alert and answering yes or no questions appropriately. In review of medical records that arrived with the patient a DNR CC form signed by the patient on 11/06/17. Past Med Surg Social Fam HX - Past Medical History Medical history: COPD, hypertension, peripheral artery disease, other Additional medical history: HEART CATH NO STENTS. SOB. SMOKER. PERIPHERAL VASCULAR DISEASE. GOUT. HIGH LIVER ENZYMES Psychiatric history: anxiety, depression - Past Surgical History Surgical History: vascular surgery, other Additional surgical history: HEART CATH. BILATERAL FEM-POP BYPASS GRAFTS. LEFT HAND - Social History Smoking Status: Current every day smoker Smokeless Tobacco Status: No Alcohol use: occasionally Drug use: none - Family History Father Hx Family Cardiac Disorders: Yes (HYPERTENSION.) Internal Medicine - H&P: Meds Albuterol Sulfate [Albuterol Inhaler] 2 puff IH Q4HR PRN 08/07/15 [History] Aspirin [Adult Low Dose Aspirin EC] 81 mg PO DAILY 08/07/15 [History] Metoprolol XL (24 HR) Succ [Toprol Xl] 25 mg PO DAILY 08/07/15 [History] Omeprazole [PriLOSEC] 20 mg PO DAILY 08/07/15 [History] Clopidogrel [Plavix] 75 mg PO DAILY #30 tablet 09/20/15 [Rx] Oxygen 4 l NS AD 12/19/15 [History] Aclidinium [place] [Tudorza Pressair] 400 mcg IH BID 11/09/16 [History] GuaiFENesin ER [Mucinex] 600 mg PO BID #20 tab 11/13/16 [Rx] Ipratropium/Albuterol Neb [Duoneb] 3 ml IH Q4H PRN #120 aerosol 11/13/16 [Rx] Budesonide/Formoterol 160/4.5 [Symbicort 160/4.5] 1 puff IH BIDR 09/07/17 [ History] Furosemide [Lasix] 40 mg PO BID 09/07/17 [History] Gabapentin [Neurontin] 300 mg PO TID 09/07/17 [History] 3 Allergy/AdvReac Type Severity Reaction Status Date / Time No Known Allergies Allergy Verified 09/07/17 14:10 ROS unobtainable: due to endotracheal tube All Systems PM: A 10-system review of systems was performed and is negative for pertinent findings except as documented above in the HPI. - Constitutional Vitals: Temp Pulse Resp BP Pulse Ox 98.3 F 107 15 165/91 96 01/07/18 04:40 01/07/18 04:40 01/07/18 04:40 01/07/18 04:40 01/07/18 04:40 Exam: Currently intubated and sedated but awake, alert and answering questions appropriately. Does not appear to be in any acute distress. - Head Head exam: Present: atraumatic, normal inspection, normocephalic - Eye Eye exam: Present: EOMI, PERRL - ENT ENT exam: Present: mucous membranes moist - Neck Neck exam general surgery: Present: full ROM - Respiratory Respiratory exam: Present: rhonchi (throughout). Absent: rales, respiratory distress, wheezes, tachypnea - Cardiovascular Cardiovascular exam: Present: tachycardia. Absent: distant heart sounds, irregular rhythm, systolic murmur - GI/Abdominal GI/Abdominal exam: Present: normal bowel sounds, soft. Absent: distended, tenderness - Extremities Exam Extremities exam: Absent: calf tenderness, cyanotic Additional comments: Diminished but palpable pedal pulses. - Neurological Exam Neurological exam: Present: alert, no focal deficits - Skin Additional comments: Approximately 5 cm x 3 cm ulceration on the anterior aspect of the right foot. Minimal surrounding erythema. No drainage noted - Assessment and plan (1) Acute and chronic respiratory failure Current Visit: Yes Status: Acute Assessment and plan: Patient has history of severe COPD, is unknown whether he is on chronic oxygen. Intubated at [facility] emergency department due to worsening respiratory status. Acute worsening likely due to COPD exacerbation. Upon arrival ABG shows chronic compensated respiratory acidosis with a pH of 7.38 and PCO2 72 and PO2 of 67. Patient is awake and alert and following commands. He is hemodynamically stable. We will attempt to extubate to BiPAP this morning. Critical care consult Qualifiers: Respiratory failure complication: hypoxia and hypercapnia Qualified Code(s) : J96.21 - Acute and chronic respiratory failure with hypoxia; J96.22 - Acute and chronic respiratory failure with hypercapnia (2) COPD exacerbation Current Visit: Yes Status: Acute Assessment and plan: Patient probably had worsening respiratory distress and ABG showed mild respiratory acidosis. Patient was intubated at [facility] ED. We will treat with steroids, scheduled bronchodilators, azithromycin 500 mg 3 days. We will attempt to extubate BiPAP. (3) History of pulmonary embolism Current Visit: Yes Status: Acute Assessment and plan: Per records. Continue Eliquis. (4) PVD (peripheral vascular disease) with claudication Current Visit: No Status: Acute Assessment and plan: Patient has history of multiple lower extremity vascular procedures and recent ABIs so severe peripheral vascular disease with right-sided ELVA of 0.31 and left -sided ELVA of 0.47. Patient has severely diminished but palpable pulses in the lower extremity. Does not appear to be acute vascular emergency however vascular was consulted from the emergency department and we will ask them to see the patient. (5) Goals of care, counseling/discussion Current Visit: Yes Status: Acute Assessment and plan: Upon arrival to the ICU when reviewing paperwork from outside emergency department a DNR CC form signed by the patient on 11/06/2017 was encountered. There was also a note mentioning that the patient was possibly pursuing hospice. Given that the patient is intubated I was unable to have a complete discussion with him but he was able to nod his head and answer yes or no questions appropriately and I asked him if he is okay with having the tube and if he needed and he nodded his head yes. Given this we will transition him to full code at this time and we will attempt to extubate. We will consult palliative care to further clarify goals of care and CODE STATUS. - Time Spent With Patient Total time spent is greater than 50% in coordination of care (as documented) at patient's floor/unit and/or counseling patient: Celestine Valderrama - Last Filed: 01/07/18 06:23> Date of Encounter: 01/07/18 Internal Medicine - H&P: HPI History of present illness: Mr. Yepez is a 57 year old male All Systems PM: A 10-system review of systems was performed and is negative for pertinent findings except as documented above in the HPI. - Constitutional Vitals: Temp Pulse Resp BP Pulse Ox 98.3 F 89 14 129/73 90 01/07/18 04:40 01/07/18 06:00 01/07/18 06:00 01/07/18 06:00 01/07/18 06:00 Internal Med - H&P Results - ABG Interpretation ABG results: 01/07/18 04:46 ABG pH 7.38 ABG pCO2 72 H* ABG pO2 68 L ABG HCO3 43 H ABG Total CO2 45 H ABG O2 Saturation 92 L ABG Base Excess 13 H - Assessment and plan (1) PVD (peripheral vascular disease) with claudication Current Visit: No Status: Acute (2) Acute and chronic respiratory failure Current Visit: Yes Status: Acute Qualifiers: Respiratory failure complication: hypoxia and hypercapnia Qualified Code(s) : J96.21 - Acute and chronic respiratory failure with hypoxia; J96.22 - Acute and chronic respiratory failure with hypercapnia (3) COPD exacerbation Current Visit: Yes Status: Acute (4) History of pulmonary embolism Current Visit: Yes Status: Acute (5) Goals of care, counseling/discussion Current Visit: Yes Status: Acute - Time Spent With Patient Total time spent is greater than 50% in coordination of care (as documented) at patient's floor/unit and/or counseling patient: - Attending Attestation Mr. Jasbir Yepez is a 57-year-old man with a history of severe COPD on 4L home oxygen and peripheral artery disease status post bilateral femoral popliteal bypass on 2 occasions who is received on transfer from [facility] where he had initially presented to with complaints of right leg pain where he is noted to have severe occlusive disease with the providers requesting transfer here for vascular surgery assessment. It somehow appears that he went into respiratory failure as we were called back stating he was being intubated as he was failing on NIPPV. On arrival here he is hemodynamically stable. Review of his records show that he had signed papers to be DNR-CC. Outside labs reviewed show acute thrombotic occlusion that is limping retinae in his right lower extremity seen on ultrasound; complete occlusion of bilateral femoral arterial grafts and multifocal high-grade stenoses involving the bilateral internal and external iliac arteries; PCO2 of 87 with a pH of 7.3 on ABG; normal CBC and BMP parameters. The patient is currently intubated but arousable and cooperative, nodding his head appropriately and writing on paper. Physical exam is remarkable for an obese white man, flushed facies, rhonchorous breath sounds in both lung garnica, distended abdomen but soft and non-tender to palpation, pitting edema in both legs with significant erythema on the right leg >left with a 4cm coin-lesion type arterial ulcer on the ventral aspect of the foot at the flexure with a purulent base and clean borders. Will manage for acute on chronic hypercarbic respiratory failure secondary to COPD exacerbation. Obtain ABG now, stop sedation and plan for safe weaning per protocol as he appears to be stable. The patient may safely be extubated to Bipap. Q4hr nebulizer therapy and steroids. Short course abx. Obtain comprehensive labs. Will require vascular surgery consultation for his severe arterial disease. Continue antiplatelet/anticoagulant therapy, statin, antihypertensives. Once extubated safely, re-evaluate goals of care and his wishes for mechanical ventilation/resuscitation. RAYMOND JORDAN. CCT 55 mins.
[2018-01-07] MEDS ORDERED: Artificial Tears SOLN 15 ML BOTTLE BOTH EYES PRN (05:15)
[2018-01-07] MEDS ORDERED: methylPREDNISolone 125 MG/2 ML VIAL IVP SCH (05:15)
[2018-01-07] MEDS ORDERED: D5% in Water 1,000 ML IVC PRN (05:48)
[2018-01-07] MEDS ORDERED: *HR* Dextrose 50 % in Water (Syg) 50 ML SYRINGE IVP PRN (05:48)
[2018-01-07] MEDS ORDERED: Dextrose Gel 15 GM/37.5 ML TUBE PO PRN ×2 (05:48)
[2018-01-07] MEDS: Dexmedetomidine HCl 400 MCG/100 ML MLS IVC SCH ×2 (05:51→21:49)
[2018-01-07] MEDS: Insulin LISPRO 300 UNITS/3 ML VIAL SQ SCH ×3 (05:51→18:27)
[2018-01-07] MEDS: FentaNYL (PF) 1,000 MCG in 0.9 % Sodium Chloride 80 ML IVC SCH (05:51)
[2018-01-07] MEDS: methylPREDNISolone 125 MG/2 ML VIAL IVP SCH ×4 (05:55→22:04)
[2018-01-07] MEDS: Scopolamine Patch 1.5 MG PATCH.TD72 TD SCH (06:00)
[2018-01-07] MEDS ORDERED: Azithromycin 500 MG in D5% in Water 250 ML IVPB SCH (06:00)
--- NOTE | 2018-01-07 07:02 | Pulmonology Progress Note ---
Date of Encounter: 01/07/18 Time of Encounter: 07:02 Objective PUL Vital signs: Last Vital Signs Temp 98.3 F 01/07/18 04:40 Pulse 89 01/07/18 06:00 Resp 14 01/07/18 06:00 BP 129/73 01/07/18 06:00 Pulse Ox 90 01/07/18 06:00 Ventilator Settings Ventilator Settings: Ventilator Settings, Last 8 Hours Ventilator Tidal Volume 500 Setting Ventilator Tidal Volume 500 Setting Ventilator Tidal Volume 500 Setting Ventilator Tidal Volume 500 Setting Ventilator Tidal Volume 500 Setting Ventilator Tidal Volume 500 Setting Ventilator Tidal Volume 500 Setting Ventilator Respiratory Rate 14 Setting Ventilator Respiratory Rate 14 Setting Ventilator Respiratory Rate 14 Setting Ventilator Respiratory Rate 14 Setting Ventilator Respiratory Rate 14 Setting Ventilator Respiratory Rate 14 Setting Ventilator Respiratory Rate 14 Setting Actual Respiratory Rate 14 Actual Respiratory Rate 15 Positive End Expiratory 5 Pressure Positive End Expiratory 5 Pressure Positive End Expiratory 5 Pressure Positive End Expiratory 5 Pressure Positive End Expiratory 5 Pressure Positive End Expiratory 5 Pressure Positive End Expiratory 5 Pressure Peak Inspiratory Airway 25 Pressure Peak Inspiratory Airway 35 Pressure Results - Laboratory Findings ABG ABG pH 7.38 pH Units (7.32-7.45) 01/07/18 04:46 ABG pCO2 72 mmHg (35-45) H* 01/07/18 04:46 ABG pO2 68 mmHg (85-104) L 01/07/18 04:46 ABG O2 Saturation 92 % (95-98) L 01/07/18 04:46 Abnormal lab findings: Abnormal lab results ABG pCO2 72 mmHg (35-45) H* 01/07/18 04:46 ABG pO2 68 mmHg (85-104) L 01/07/18 04:46 ABG HCO3 43 mEq/L (21-27) H 01/07/18 04:46 ABG Total CO2 45 mEq/L (20-26) H 01/07/18 04:46 ABG O2 Saturation 92 % (95-98) L 01/07/18 04:46 ABG Base Excess 13 mEq/L (-2 to 3) H 01/07/18 04:46 - Clinical Findings Intake & Output: Intake & Output 01/06/18 01/06/18 01/07/18 15:59 23:59 07:59 Intake Total 255 / 255 Output Total 300 / 300 Balance -45 / -45 Weight 129 kg Consult Discharge Plan - Plan Referrals: NONE,PCP [Primary Care Provider] -
[2018-01-07] MEDS: Ipratropium/Albuterol Neb 3 ML IH SCH ×4 (07:54→20:14)
[2018-01-07] MEDS: Budesonide/Formoterol 160/4.5 1 PUFF INH IH SCH ×2 (07:56→20:14)
[2018-01-07 07:57] LABS: Eosinophils % 0.1 %; Hematocrit 46.3 % (37.5-50.1); Immature Granulocytes % 0.4 % (0-4); Lymphocytes # 0.4 K/mcL (0.6-4.6); Lymphocytes % 4.4 %; Mean Corpuscular HGB Conc 30.2 g/dL (31.6-35.5); Mean Corpuscular Hemoglobin 30.8 pg (28.0-33.3); Mean Platelet Volume 10.9 fL (9.4-12.4); Monocytes # 0.1 K/mcL (0.0-1.3); Monocytes % 1.3 %; Neutrophils # 7.9 K/mcL (1.6-8.9); Platelet Count 209 K/mcL (140-400); Red Blood Count 4.54 M/mcL (4.19-5.50); Red Cell Distribution Width 15.9 % (11.5-14.5); Segmented Neutrophils % 93.8 %
[2018-01-07 08:21] LABS: BUN/Creatinine Ratio 12 (6-26); Blood Urea Nitrogen 8 mg/dL (6-20); Calcium 9.6 mg/dL (8.6-10.3); Carbon Dioxide 40 mEq/L (23-29); Chloride 91 mEq/L (98-107); Glucose 237 mg/dL (70-105); Osmolality,Calculated 288 (280-300); Potassium 3.8 mEq/L (3.5-5.1); Sodium 136 mEq/L (136-145); eGFR For Non-African Americans > 60 (> 60)
[2018-01-07] MEDS: Artificial Tears SOLN 15 ML BOTTLE BOTH EYES SCH ×4 (09:06→20:00)
[2018-01-07] MEDS: Chlorhexidine Rinse 15 ML MOUTHWASH MM SCH ×2 (09:06→20:27)
[2018-01-07] MEDS: Apixaban 5 MG TABLET PO SCH ×2 (09:28→20:27)
[2018-01-07] MEDS: Aspirin 81 MG TAB.CHEW PO SCH (09:28)
[2018-01-07] MEDS: Pantoprazole 40 MG VIAL IVP SCH (09:28)
--- NOTE | 2018-01-07 09:36 | Pulmonology Consult Note ---
<IndioodilonTae rivera M - Last Filed: 01/07/18 10:04> Date of Encounter: 01/07/18 Medications and Allergies Albuterol Sulfate [Albuterol Inhaler] 2 puff IH Q4HR PRN 08/07/15 [History] Aspirin [Adult Low Dose Aspirin EC] 81 mg PO DAILY 08/07/15 [History] Metoprolol XL (24 HR) Succ [Toprol Xl] 25 mg PO DAILY 08/07/15 [History] Omeprazole [PriLOSEC] 20 mg PO DAILY 08/07/15 [History] Clopidogrel [Plavix] 75 mg PO DAILY #30 tablet 09/20/15 [Rx] Oxygen 4 l NS AD 12/19/15 [History] Aclidinium [place] [Tudorza Pressair] 400 mcg IH BID 11/09/16 [History] GuaiFENesin ER [Mucinex] 600 mg PO BID #20 tab 11/13/16 [Rx] Ipratropium/Albuterol Neb [Duoneb] 3 ml IH Q4H PRN #120 aerosol 11/13/16 [Rx] Budesonide/Formoterol 160/4.5 [Symbicort 160/4.5] 1 puff IH BIDR 09/07/17 [ History] Furosemide [Lasix] 40 mg PO BID 09/07/17 [History] Gabapentin [Neurontin] 300 mg PO TID 09/07/17 [History] 3 Allergy/AdvReac Type Severity Reaction Status Date / Time No Known Allergies Allergy Verified 09/07/17 14:10 All Systems: The remainder of the systems were reviewed and are negative Physical Examination Vital Signs: Vital Signs, Last 4 Hours Temp Pulse Resp BP Pulse Ox 01/07/18 07:55 20 93 01/07/18 07:52 20 91 01/07/18 07:50 93 01/07/18 07:44 14 94 01/07/18 07:39 85 01/07/18 07:00 99.1 F 86 15 121/74 94 Ventilator Settings Ventilator Settings: Ventilator Settings, Last 8 Hours Ventilator Tidal Volume 500 Setting Ventilator Tidal Volume 500 Setting Ventilator Tidal Volume 500 Setting Ventilator Tidal Volume 500 Setting Ventilator Tidal Volume 500 Setting Ventilator Tidal Volume 500 Setting Ventilator Tidal Volume 500 Setting Ventilator Tidal Volume 500 Setting Ventilator Tidal Volume 500 Setting Ventilator Respiratory Rate 14 Setting Ventilator Respiratory Rate 14 Setting Ventilator Respiratory Rate 14 Setting Ventilator Respiratory Rate 14 Setting Ventilator Respiratory Rate 14 Setting Ventilator Respiratory Rate 14 Setting Ventilator Respiratory Rate 14 Setting Ventilator Respiratory Rate 14 Setting Ventilator Respiratory Rate 14 Setting Actual Respiratory Rate 14 Actual Respiratory Rate 14 Actual Respiratory Rate 15 Positive End Expiratory 5 Pressure Positive End Expiratory 5 Pressure Positive End Expiratory 5 Pressure Positive End Expiratory 5 Pressure Positive End Expiratory 5 Pressure Positive End Expiratory 5 Pressure Positive End Expiratory 5 Pressure Positive End Expiratory 5 Pressure Positive End Expiratory 5 Pressure Peak Inspiratory Airway 22 Pressure Peak Inspiratory Airway 22 Pressure Peak Inspiratory Airway 25 Pressure Peak Inspiratory Airway 35 Pressure Results - Laboratory Findings CBC and BMP: 01/07/18 07:21 01/07/18 07:21 ABG ABG pH 7.38 pH Units (7.32-7.45) 01/07/18 04:46 ABG pCO2 72 mmHg (35-45) H* 01/07/18 04:46 ABG pO2 68 mmHg (85-104) L 01/07/18 04:46 ABG O2 Saturation 92 % (95-98) L 01/07/18 04:46 Abnormal lab findings: Abnormal lab results MCV 102.0 fL (83.0-100.0) H 01/07/18 07:21 MCHC 30.2 g/dL (31.6-35.5) L 01/07/18 07:21 RDW 15.9 % (11.5-14.5) H 01/07/18 07:21 Lymphocytes # 0.4 K/mcL (0.6-4.6) L 01/07/18 07:21 ABG pCO2 72 mmHg (35-45) H* 01/07/18 04:46 ABG pO2 68 mmHg (85-104) L 01/07/18 04:46 ABG HCO3 43 mEq/L (21-27) H 01/07/18 04:46 ABG Total CO2 45 mEq/L (20-26) H 01/07/18 04:46 ABG O2 Saturation 92 % (95-98) L 01/07/18 04:46 ABG Base Excess 13 mEq/L (-2 to 3) H 01/07/18 04:46 Chloride 91 mEq/L (98-107) L 01/07/18 07:21 Carbon Dioxide 40 mEq/L (23-29) H* 01/07/18 07:21 Creatinine 0.66 mg/dL (0.70-1.30) L 01/07/18 07:21 Glucose 237 mg/dL (70-105) H 01/07/18 07:21 - Microbiology Findings Microbiology Findings: Microbiology, Last 48 Hours 01/07/18 04:30 Sputum Culture - Preliminary Sputum - Clinical Findings Intake & Output: Intake & Output 01/06/18 01/07/18 01/07/18 23:59 07:59 15:59 Intake Total 350 / 350 Output Total 2200 / 2200 Balance -1850 / -1850 Weight 129 kg Consult Discharge Plan - Plan Referrals: NONE,PCP [Primary Care Provider] - - Attending Attestation I examined this patient and my medical decision-making was reviewed with the Resident Physician. I agree with the documented findings, disposition and treatment plan as described except to the extent set forth below. Patient seen and examined. Labs, radiology, chart personally reviewed. Agree with resident's history and physical, assessment, plan with following comments: RESERVATION AGENT: Patient follows commands, Pulmonary: Acceptable oxygenation and ventilation. Patient was successfully extubated and will be transferred to floor and he wanted his code status to be changed and he understand consequences. He doesn't want to be intubated again. He will be treated for AECOPD with bronchodilators and steroid with empiric antibiotic. GI: Nutrition per dietary and GI prophylaxis per routine Heme: DVT prophylaxis per routine and check with vascular surgery and doppler, however he is no anticoagulation. ID: Continue antibiotics and plan to de-escalation Renal; urine out put and renal funtion reviewed Endorcine: blood glucose is monitored Lines: all lines checked and no evidence of infections Skin: skin care to prevent pressure ulcers per nursing routine care and wound care. Patient to be transferred to floor <Kip Knutson - Last Filed: 01/07/18 11:05> Date of Encounter: 01/07/18 Time of Encounter: 09:36 Assessment and Plan (1) Acute and chronic respiratory failure Current Visit: Yes Status: Acute Patient was extubated in the ICU this a.m. and is currently resting comfortably on 5 L/m nasal cannula with alternate BiPAP use for sleep. Patient arterial blood gas shows values consistent with chronic compensated respiratory acidosis Continue steroids, bronchodilators and DuoNebs Continue to monitor Qualifiers: Respiratory failure complication: hypoxia and hypercapnia Qualified Code(s) : J96.21 - Acute and chronic respiratory failure with hypoxia; J96.22 - Acute and chronic respiratory failure with hypercapnia (2) Goals of care, counseling/discussion Current Visit: Yes Status: Acute Patient CODE STATUS initially changed from DNR CC arrest to full code by [facility] ICU staff post intubation. We will discuss plans for care and CODE STATUS today. (3) History of pulmonary embolism Current Visit: Yes Status: Acute Patient history of DVT sudden onset of breathing difficulty while in [facility] ED are concerning for potential blood clots Patient is currently taking 5 mg daily Eliquis with uncertain adherence to regimen We will perform lower extremity bilateral venous Doppler to assess for DVT Potential for CTA if indicated based on imaging results and clinical impression (4) PVD (peripheral vascular disease) with claudication Current Visit: No Status: Acute Patient received bilateral peripheral arterial Doppler on January 05 which is concerning for arterial occlusion in bilateral lower extremities Vascular consult obtained We will continue to monitor (5) Tobacco abuse Current Visit: No Status: Chronic Patient strongly encouraged to stop smoking in light of continued respiratory disease and peripheral vascular disease. History of Present Illness Consult date: 01/07/18 Reason for consult: dyspnea, COPD, other (Acute on chronic respiratory failure) Chief complaint: Acute on chronic respiratory failure History of present illness: Patient is a 57-year-old male presenting to [facility] intensive care unit from [facility] emergency department for acute on chronic respiratory failure. Patient has a past medical history of COPD, hypertension, peripheral vascular disease with heart stent placement and bilateral femoropopliteal bypass grafts. The patient was sent to [facility] ED yesterday after ECF staff noted absent lower extremities pulses. In the ED the patient was noted to have increasing respiratory distress, nonresponsive to BiPAP and was intubated. Patient's arterial blood gas results is significant for chronic compensated respiratory acidosis with a pH of 7.36, PCO2 77, PO2 of 56, HCO3 43.5, O2 saturation of 87%, base excess of 14.6. Patient has been successfully extubated in the ICU this a.m. and is resting comfortably on 5 L/m via nasal cannula at oxygen saturation 93% with alternating BiPAP use when sleeping. Plan to discharge patient from ICU to telemetry unit later today. Past Med Surg Social Fam HX - Past Medical History Medical history: COPD, hypertension, peripheral artery disease, other Additional medical history: HEART CATH NO STENTS. SOB. SMOKER. PERIPHERAL VASCULAR DISEASE. GOUT. HIGH LIVER ENZYMES Psychiatric history: anxiety, depression - Past Surgical History Surgical History: vascular surgery, other Additional surgical history: HEART CATH. BILATERAL FEM-POP BYPASS GRAFTS. LEFT HAND - Social History Smoking Status: Current every day smoker Smokeless Tobacco Status: No Alcohol use: occasionally Drug use: none - Family History Father Hx Family Cardiac Disorders: Yes (HYPERTENSION.) All Systems: The remainder of the systems were reviewed and are negative - Constitutional Constitutional: no headache(s) - EENT Eyes: no loss of vision Nose, mouth and throat: no disequilibrium, no dizziness, no headache(s), no odynophagia, no vertigo - Cardiovascular Cardiovascular: no chest pain, no dyspnea, no lightheadedness - Respiratory Respiratory: no dyspnea - Gastrointestinal Gastrointestinal: no abdominal pain - Musculoskeletal Musculoskeletal: no back pain - Neurological Neurological: no headache(s), no lack of coordination, no loss of vision, no other visual disturbances Physical Examination Vital Signs: Vital Signs, Last 4 Hours Temp Pulse Resp BP Pulse Ox 01/07/18 07:55 20 93 01/07/18 07:52 20 91 01/07/18 07:50 93 01/07/18 07:44 14 94 01/07/18 07:39 85 01/07/18 07:00 99.1 F 86 15 121/74 94 01/07/18 06:00 89 14 129/73 90 01/07/18 05:55 14 123/73 90 General appearance: no acute distress, alert Eyes: nonicteric ENT: oropharynx moist Effort: normal Auscultation: bilateral: wheezes Cardiovascular: regular rate and rhythm Gastrointestinal: normoactive bowel sounds, soft, non-tender, non-distended Extremities: edema (There is 2+ pitting edema noticed in bilateral lower extremities likely due to venous insufficiency, there is a stage II ulceration noted some the dorsal aspect of the right foot-wound care has been consulted) non-focal exam Ventilator Settings Ventilator Settings: Ventilator Settings, Last 8 Hours Ventilator Tidal Volume 500 Setting Ventilator Tidal Volume 500 Setting Ventilator Tidal Volume 500 Setting Ventilator Tidal Volume 500 Setting Ventilator Tidal Volume 500 Setting Ventilator Tidal Volume 500 Setting Ventilator Tidal Volume 500 Setting Ventilator Tidal Volume 500 Setting Ventilator Tidal Volume 500 Setting Ventilator Respiratory Rate 14 Setting Ventilator Respiratory Rate 14 Setting Ventilator Respiratory Rate 14 Setting Ventilator Respiratory Rate 14 Setting Ventilator Respiratory Rate 14 Setting Ventilator Respiratory Rate 14 Setting Ventilator Respiratory Rate 14 Setting Ventilator Respiratory Rate 14 Setting Ventilator Respiratory Rate 14 Setting Actual Respiratory Rate 14 Actual Respiratory Rate 14 Actual Respiratory Rate 15 Positive End Expiratory 5 Pressure Positive End Expiratory 5 Pressure Positive End Expiratory 5 Pressure Positive End Expiratory 5 Pressure Positive End Expiratory 5 Pressure Positive End Expiratory 5 Pressure Positive End Expiratory 5 Pressure Positive End Expiratory 5 Pressure Positive End Expiratory 5 Pressure Peak Inspiratory Airway 22 Pressure Peak Inspiratory Airway 22 Pressure Peak Inspiratory Airway 25 Pressure Peak Inspiratory Airway 35 Pressure Results - Laboratory Findings CBC and BMP: 01/07/18 07:21 01/07/18 07:21 ABG ABG pH 7.38 pH Units (7.32-7.45) 01/07/18 04:46 ABG pCO2 72 mmHg (35-45) H* 01/07/18 04:46 ABG pO2 68 mmHg (85-104) L 01/07/18 04:46 ABG O2 Saturation 92 % (95-98) L 01/07/18 04:46 Abnormal lab findings: Abnormal lab results MCV 102.0 fL (83.0-100.0) H 01/07/18 07:21 MCHC 30.2 g/dL (31.6-35.5) L 01/07/18 07:21 RDW 15.9 % (11.5-14.5) H 01/07/18 07:21 Lymphocytes # 0.4 K/mcL (0.6-4.6) L 01/07/18 07:21 ABG pCO2 72 mmHg (35-45) H* 01/07/18 04:46 ABG pO2 68 mmHg (85-104) L 01/07/18 04:46 ABG HCO3 43 mEq/L (21-27) H 01/07/18 04:46 ABG Total CO2 45 mEq/L (20-26) H 01/07/18 04:46 ABG O2 Saturation 92 % (95-98) L 01/07/18 04:46 ABG Base Excess 13 mEq/L (-2 to 3) H 01/07/18 04:46 Chloride 91 mEq/L (98-107) L 01/07/18 07:21 Carbon Dioxide 40 mEq/L (23-29) H* 01/07/18 07:21 Creatinine 0.66 mg/dL (0.70-1.30) L 01/07/18 07:21 Glucose 237 mg/dL (70-105) H 01/07/18 07:21 - Clinical Findings Intake & Output: Intake & Output 01/06/18 01/07/18 01/07/18 23:59 07:59 15:59 Intake Total 350 / 350 Output Total 2200 / 2200 Balance -1850 / -1850 Weight 129 kg
--- NOTE | 2018-01-07 10:45 | Palliative - Consult Note ---
Date of Encounter: 01/07/18 Time of Encounter: 11:13 - Assessment and Plan (1) Goals of care, counseling/discussion Current Visit: Yes Status: Acute Assessment and plan: Patient currently resides at an F due to decreasing ability to care for himself. He states that he has no family members, and has only one friend, Wendi ([phone]), who visits him whenever she is able. He states that he is unsure if this friend would be willing to make decisions for him if he were unable to do so himself; however, he did verbally amita permission for palliative care team to speak with his friend regarding his medical conditions and prognosis. Mr. Yepez appears to have limited understanding about the expected trajectory of his severe COPD. He reportedly still smokes ~1 pack per day. Patient has a signed DNR-CC form dated 11/06/2017. He did arrive to [facility] already intubated due to concern for worsening respiratory condition. Per admission H&P, patient was awake and alert and indicated permission to continue with invasive treatments, including intubation. He was successfully extubated this morning and reports that he is currently having no respiratory difficulties. He denies any significant worsening of his respiratory symptoms overall, and is doing well on 4L continuous flow via nasal canula. When asked about whether he would want to be intubated again in the future, should his respiratory status again worsen, patient expresses uncertainty, but states that he would likely give permission. His previous DNR-CC order was discussed, and patient was asked whether he still wanted to continue with a DNR code status. Mr. Yepez stated that he did not know, and that he would have to think about it for a while. He was educated about the risks and benefits of resuscitative measures, including CPR and intubation, to which he voiced understanding. Code status was changed from DNR-CC to full code pending patient decision. At this point, patient does not appear ready to make a firm decision about his code status. He stated that he needed some time to think about it for a while; at this time, it is unclear as to why he signed a DNR-CC order in October. Will revisit code status with him Wednesday; in the meantime, will attempt to contact his friend to discuss his medical conditions and evaluate whether or not she might be willing to make decisions for him in the future, should he become unable to do so. Plan to discuss appropriate goals of care with Mr. Yepez on Wednesday. (2) COPD exacerbation Current Visit: Yes Status: Acute Assessment and plan: Patient arrived from [facility] intubated due to worsening respiratory status. He was extubated this morning and denies any shortness of breath or difficulty in breathing. He denies any worsening of his overall respiratory status and reports no shortness of breath while on 4L continuous flow, which is what he has available at home. Per primary team, continue symbicort BID, duonebs Q6H, methylprednisolone 40mg IVP Q6H, and azithromycin 500mg IVPB Q24H x 2 days. (3) History of pulmonary embolism Current Visit: Yes Status: Acute Assessment and plan: Patient has a personal history of DVT/PE in the past. Due to his acutely worsening respiratory status last night, venous doppler study is pending to rule out recurrent DVT/PE. Continue anticoagulation with eliquis 5mg BID, which he takes at home, with addition to aspirin 81mg QD and plavix 75mg QD. (4) PVD (peripheral vascular disease) with claudication Current Visit: No Status: Acute Assessment and plan: Patient has known peripheral vascular disease with claudication. Vascular consult was placed while the patient was in the ED; evaluation pending. Patient does complain of bilateral lower extremity pain, worse in the right foot, which is 8/10 in severity. Patient does complain about 8/10 lower extremity pain, particularly in the right foot. He reports taking gabapentin and an opioid pain medication on a regular basis, though he is uncertain as to what medication or dose he is taking. Review of his OAR[place] report reveals the following recently filled medications: gabapentin 300mg x 4 tablets daily, oxycodone 20mg QID, ativan 0.5mg x 6 tablets daily, and morphine concentrate 30mL. Suspect that polypharmacy may have contributed to his respiratory decline last night; therefore, will only restart therapy with gabapentin 300mg TID and oxycodone 20mg Q6H PRN at this time. Wound care has been consulted regarding right foot ulceration noted by primary team. (5) CHF (congestive heart failure) Current Visit: Yes Status: Acute Assessment and plan: Patient had a hospitalization in November 2016, during which he was diagnosed with congestive heart failure. Echocardiogram performed 11/12/2016 demonstrated LVEF of 60%. Mild concentraic LVH was noted, as was evidence of moderate diastolic dysfunction of the left ventricle with elevated filling pressure. Mild mitral and tricuspid regurgitation were found. Mr. Yepez does not currently appear to be on diuretic therapy at home; however, he does not appear to be having an acute CHF exacerbation. Consider addition of lasix for fluid overload if patient appears to be developing symptoms of CHF exacerbation. Qualifiers: Heart failure type: systolic Heart failure chronicity: chronic Qualified Code(s): I50.22 - Chronic systolic (congestive) heart failure Palliative-CN HPI - Data of Consult Patient: new to practice Consult date: 01/07/18 Requesting Physician: Laura Xie MD Primary Care Provider: PCP NONE - Consult Narrative Reason for consult: Goals of care discussion History of present illness: Mr. Yepez is a 57 year old male with a history of severe COPD, CHF, peripheral vascular disease, and hyperlipidemia who was transferred to [place] yesterday from [facility] emergency department due to acute on chronic respiratory failure. He had presented to [facility] from [facility] due to decreased lower extremity pulses. Per admission H&P, patient had worsening shortness of breath while being assessed at the outside facility, with respiratory decline requiring intubation. Upon arrival to [facility], patient was reportedly awake, alert, and able to answer questions. Patient was recorded as a full code on admission; however, during record review , a DNR-CC form was found, which was signed by the patient on 11/06/2017. Patient reportedly expressed agreement with continued intubation and treatment, and was successfully weaned from the ventilator and extubated this morning. In accordance with his signed DNR, his code status was changed to DNR-CC- ArrestDNI. Palliative care was consulted for assistance in determining patient resuscitation status and goals of care. On evaluation this morning, Mr. Yepez is resting comfortably and appears to be in no acute distress. He denies any ongoing respiratory difficulties, and in fact states that he was not having shortness of breath or trouble breathing prior to intubation last night. He states that he thinks they "got scared" at the outside ED, which is why he was intubated, stating "I didn't have a choice if I wanted to live". He denies fully understanding his current medical problems and states that he has not been told what to expect in terms of disease progression or prognosis. He does complain of lower extremity pain secondary to ulcer present on the dorsal surface of his right foot, which is bandaged. He denies any other acute complaints or concerns. CC: Laura Xie MD - Time Spent with Patient Time: Total time spent is greater than 50% in coordination of care (as documented) at patient's floor/unit and/or counseling patient: Past Med Surg Social Fam HX - Past Medical History Source: patient, old records reviewed Medical history: CHF, COPD, hyperlipidemia, hypertension, peripheral artery disease, other Additional medical history: HEART CATH NO STENTS. SOB. SMOKER. PERIPHERAL VASCULAR DISEASE. GOUT. HIGH LIVER ENZYMES Psychiatric history: anxiety, depression - Past Surgical History Surgical History: vascular surgery, other Additional surgical history: HEART CATH. BILATERAL FEM-POP BYPASS GRAFTS. LEFT HAND - Social History Smoking Status: Current every day smoker Smokeless Tobacco Status: No Alcohol use: occasionally Drug use: none Current living situation: ECF - Family History Father Hx Family Cardiac Disorders: Yes (HYPERTENSION.) Medications and Allergies Albuterol Sulfate [Albuterol Inhaler] 2 puff IH Q4HR PRN 08/07/15 [History] Aspirin [Adult Low Dose Aspirin EC] 81 mg PO DAILY 08/07/15 [History] Omeprazole [PriLOSEC] 20 mg PO DAILY 08/07/15 [History] Clopidogrel [Plavix] 75 mg PO DAILY #30 tablet 09/20/15 [Rx] Oxygen 4 l NS AD 12/19/15 [History] Aclidinium [place] [Tudorza Pressair] 400 mcg IH BID 11/09/16 [History] Ipratropium/Albuterol Neb [Duoneb] 3 ml IH Q4H PRN #120 aerosol 11/13/16 [Rx] Budesonide/Formoterol 160/4.5 [Symbicort 160/4.5] 1 puff IH BIDR 09/07/17 [ History] Furosemide [Lasix] 40 mg PO DAILY 09/07/17 [History] Apixaban [Eliquis] 5 mg PO BID 01/07/18 [History] Atorvastatin [Lipitor] 40 mg PO HS 01/07/18 [History] Insulin ASPART [Novolog Flexpen] 0 unit SQ DAILY 01/07/18 [History] Losartan Potassium [Cozaar] 50 mg PO DAILY 01/07/18 [History] Metoprolol Tartrate [Lopressor] 50 mg PO DAILY 01/07/18 [History] Potassium Chloride [Klor-Con 10] 10 meq PO BID 01/07/18 [History] Zolpidem [Ambien] 5 mg PO DAILY PRN 01/07/18 [History] amLODIPine [Norvasc] 5 mg PO DAILY 01/07/18 [History] 3 Allergy/AdvReac Type Severity Reaction Status Date / Time No Known Allergies Allergy Verified 01/07/18 11:10 All systems: reviewed and no additional remarkable complaints except as stated Palliative Care-Exam - Constitutional Vitals: Temp Pulse Resp BP Pulse Ox 99.1 F 85 20 121/74 93 01/07/18 07:00 01/07/18 07:39 01/07/18 07:55 01/07/18 07:00 01/07/18 07:55 Exam: GENERAL: Obese male lying in bed comfortably. He appears to be in no acute distress. He is alert and answers questions appropriately. HEENT: Atraumatic and normocephalic. Nasal canula in place. NECK: Soft and nontender. No lymphadenopathy present. Mild thyromegaly noted. CARDIOVASCULAR: Regular rate and rhythm. S1 and S2 present. No murmurs, gallops , or rubs. RESPIRATORY: CTA bilaterally. No wheezes, rales, or rhonchi present. No accessory muscle use noted. GASTROINTESTINAL: Active bowel sounds present x 4 quadrants. Abdomen is distended but soft and nontender. MUSCULOSKELETAL: Skin changes consistent with chronic venous stasis present in bilateral lower extremities. 1+ tender pitting edema present in bilateral lower extremities. Bandage present on right foot. NEUROLOGICAL: Alert and oriented x 3. Patient moves all four extremities spontaneously. No apparent focal deficits. Internal Medicine - CN: Reslt - Labs CBC & Chem 7: 01/07/18 07:21 01/07/18 07:21 Labs: Short CBC 01/07/18 Range/Units 07:21 WBC 8.4 (4.3-11.1) K/mcL Hgb 14.0 (12.9-16.9) g/dL Hct 46.3 (37.5-50.1) % Plt Count 209 (140-400) K/mcL Neutrophils # 7.9 (1.6-8.9) K/mcL BMP 01/07/18 07:21 Sodium 136 Potassium 3.8 Chloride 91 L Carbon Dioxide 40 H* BUN 8 Creatinine 0.66 L Glucose 237 H Calcium 9.6 - ABG Interpretation ABG results: ABG ABG pH 7.38 pH Units (7.32-7.45) 01/07/18 04:46 ABG pCO2 72 mmHg (35-45) H* 01/07/18 04:46 ABG pO2 68 mmHg (85-104) L 01/07/18 04:46 ABG O2 Saturation 92 % (95-98) L 01/07/18 04:46 - Impressions Impressions Chest X-Ray 01/07/18 05:49 IMPRESSION: Mild pulmonary vascular congestion which appears slightly more prominent. Endotracheal tube located 5 cm above the maria g. Suggest advancement of the nasogastric tube by 10 cm. D/ / 01/07/2018 08:07:32 Reyes Yost MD / Shanice Biggs Interpreting Provider: Reyes Yost MD X-Ray 01/07/18 05:49 IMPRESSION: Enteric tube in the stomach as above. No evidence of bowel obstruction. D/ / Reyes Yost MD / Reyes Yost MD Interpreting Provider: Reyes Yost MD Consult Discharge Plan - Plan Referrals: NONE,PCP [Primary Care Provider] - Palliative Quality Palliative Quality: Screen for Code Status: Yes (Patient requests more time to consider code status), Screen for Goals of Care: Yes, Screen for Pain: Yes, If Pain Regimen Started, Initiate Bowel Regimen: Yes, Screen for Nausea/Vomitting: Yes Code Status: 01/07/18 04:42 Resuscitation Status: Active [RES] Routine Comment: Resuscitation Status: DNR-Comfort Care 01/07/18 05:20 CODE [Resuscitation Status: Active] [RES] Routine Comment: Resuscitation Status: Full Code CODE [Resuscitation Status: Active] [RES] Routine Comment: Resuscitation Status: [id number] 01/07/18 13:39 CODE [Resuscitation Status: Active] [RES] Routine Comment: Resuscitation Status: [id number] CODE [Resuscitation Status: Active] [RES] Routine Comment: Resuscitation Status: Full Code
[2018-01-07] MEDS: Sennosides/Docusate Sodium TABLET PO SCH ×2 (14:09→20:27)
[2018-01-07] MEDS: *HR* OxyCODONE Immed Rel 5 MG TABLET PO PRN ×2 (15:45→21:53)
[2018-01-07] MEDS: Gabapentin 300 MG CAPSULE PO SCH ×2 (15:45→20:27)
--- NOTE | 2018-01-07 21:57 | Vascular/Endovasc Consult Note ---
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 He is previously undergone bilateral femoral to popliteal artery bypasses with reversed greater saphenous vein. Both of his grafts have occluded. He is also undergone bilateral femoral to popliteal artery bypass grafts with PTFE. Both of those grafts are also occluded. The patient has now developed a right dorsal foot ulcer as well as a right heel ulcer. He will be scheduled for ankle -brachial indices and TCP O2 levels. 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 (4) Tobacco abuse Current Visit: No Status: Chronic The patient was counseled regarding smoking cessation. (5) COPD (chronic obstructive pulmonary disease) Current Visit: No Status: Chronic Qualifiers: COPD type: emphysema Emphysema type: panlobular Qualified Code(s): J43.1 - Panlobular emphysema - History of Present Illness Consult date: 01/07/18 Requesting physician: Daryl Rivera Consult reason: Peripheral vascular disease with ulceration Chief complaint: Nonhealing right ankle and heel ulceration History of present illness: Mr. Yepez is a 57 year old male with a history of hypertension, COPD, hyperlipidemia, tobacco abuse and severe peripheral vascular disease. The patient is present undergone bilateral femoral to popliteal artery bypasses. His first procedures were done with vein. He later developed occlusions of his graft and required bilateral femoral to popliteal artery bypass grafts with PTFE. His grafts are known to be chronically occluded. The patient is not follow-up in vascular clinic since March 2016. Since that time he reports that he continues to smoke and his COPD he has progressed significantly. The patient reports that he is currently under hospice care. To [facility] due to a COPD exacerbation. He was noted to have a right foot ulcer. Vascular surgery was counseled for further evaluation. The patient denies any fevers or chills. He also denies chest pain or shortness of breath at this time. Past Med Surg Social Fam HX - Past Medical History Medical history: CHF, COPD, hyperlipidemia, hypertension, peripheral artery disease, other Additional medical history: HEART CATH NO STENTS. SOB. SMOKER. PERIPHERAL VASCULAR DISEASE. GOUT. HIGH LIVER ENZYMES Psychiatric history: anxiety, depression - Past Surgical History Surgical History: vascular surgery, other Additional surgical history: HEART CATH. BILATERAL FEM-POP BYPASS GRAFTS. LEFT HAND - Social History Smoking Status: Current every day smoker Smokeless Tobacco Status: No Alcohol use: occasionally Drug use: none - Family History Father Hx Family Cardiac Disorders: Yes (HYPERTENSION.) Mother Living Status: Medications and Allergies Albuterol Sulfate [Albuterol Inhaler] 2 puff IH Q4HR PRN 08/07/15 [History] Aspirin [Adult Low Dose Aspirin EC] 81 mg PO DAILY 08/07/15 [History] Omeprazole [PriLOSEC] 20 mg PO DAILY 08/07/15 [History] Clopidogrel [Plavix] 75 mg PO DAILY #30 tablet 09/20/15 [Rx] Oxygen 4 l NS AD 12/19/15 [History] Aclidinium [place] [Tudorza Pressair] 400 mcg IH BID 11/09/16 [History] Ipratropium/Albuterol Neb [Duoneb] 3 ml IH Q4H PRN #120 aerosol 11/13/16 [Rx] Budesonide/Formoterol 160/4.5 [Symbicort 160/4.5] 1 puff IH BIDR 09/07/17 [ History] Furosemide [Lasix] 40 mg PO DAILY 09/07/17 [History] Apixaban [Eliquis] 5 mg PO BID 01/07/18 [History] Atorvastatin [Lipitor] 40 mg PO HS 01/07/18 [History] Insulin ASPART [Novolog Flexpen] 0 unit SQ DAILY 01/07/18 [History] Losartan Potassium [Cozaar] 50 mg PO DAILY 01/07/18 [History] Metoprolol Tartrate [Lopressor] 50 mg PO DAILY 01/07/18 [History] Potassium Chloride [Klor-Con 10] 10 meq PO BID 01/07/18 [History] Zolpidem [Ambien] 5 mg PO DAILY PRN 01/07/18 [History] amLODIPine [Norvasc] 5 mg PO DAILY 01/07/18 [History] 3 Allergy/AdvReac Type Severity Reaction Status Date / Time No Known Allergies Allergy Verified 01/07/18 11:10 All Systems Review: The remainder of the systems were reviewed and are negative - Constitutional Constitutional: no chills, no fever(s) - Cardiovascular Cardiovascular: no chest pain at rest, no dyspnea at rest - Vascular Vascular: lower extremity ulcers Exam Vital Signs, Last 4 Hours Temp Pulse Resp BP Pulse Ox 01/07/18 20:14 20 93 01/07/18 18:57 98.3 F 105 16 139/72 92 General: Present: Conversant, No Apparent Distress HEENT: Present: Atraumatic, Trachea midline, Pupils equal Neck: Absent: JVD, Lymphadenopathy, Left Carotid bruit, Right Carotid bruit Cardiac: Present: Reg Rate and Rhythm, Normal S1 and S2, No Murmur Lungs: Present: Normal Breath Sounds, No Wheeze, Rales, Rhonchi Neuro: Present: Alert and responsive, No focal deficits noted, Motor nerves grossly intact, Sensory nerves grossly intact Abdomen: Present: Soft, Non-tender. Absent: Masses Vascular: Present: Normal capillary refill, Pulse, absent (Bilateral pedal pulses are absent). Absent: Cyanosis, Edema Skin: Present: No rashes noted on visualized skin, Wound/ulcer(s) (Superficial ulcer on the dorsal aspect of the proximal foot, no fluctuance, no erythema. Right heel crack without erythema or drainage) Musculoskeletal: Present: No Chest Wall Tenderness Consult Discharge Plan - Plan Referrals: NONE,PCP [Primary Care Provider] -
[2018-01-08] MEDS: Ipratropium/Albuterol Neb 3 ML IH SCH ×7 (00:14→23:14)
[2018-01-08] MEDS: *HR* OxyCODONE Immed Rel 5 MG TABLET PO PRN ×4 (04:03→22:09)
[2018-01-08] MEDS: Azithromycin 500 MG in D5% in Water 250 ML IVPB SCH (05:50)
[2018-01-08] MEDS: methylPREDNISolone 125 MG/2 ML VIAL IVP SCH ×3 (05:53→16:15)
[2018-01-08 06:12] LABS: Hematocrit 42.8 % (37.5-50.1); Immature Granulocytes % 0.6 % (0-4); Lymphocytes # 0.6 K/mcL (0.6-4.6); Mean Corpuscular HGB Conc 30.4 g/dL (31.6-35.5); Mean Corpuscular Hemoglobin 30.5 pg (28.0-33.3); Mean Corpuscular Volume 100.5 fL (83.0-100.0); Monocytes # 0.5 K/mcL (0.0-1.3); Neutrophils # 7.1 K/mcL (1.6-8.9); Platelet Count 238 K/mcL (140-400); Red Blood Count 4.26 M/mcL (4.19-5.50); Red Cell Distribution Width 15.3 % (11.5-14.5); Segmented Neutrophils % 86.4 %
[2018-01-08 06:24] LABS: BUN/Creatinine Ratio 16 (6-26); Blood Urea Nitrogen 11 mg/dL (6-20); Calcium 9.8 mg/dL (8.6-10.3); Carbon Dioxide 36 mEq/L (23-29); Chloride 94 mEq/L (98-107); Glucose 173 mg/dL (70-105); Osmolality,Calculated 288 (280-300); Potassium 3.6 mEq/L (3.5-5.1); Sodium 137 mEq/L (136-145); eGFR For Non-African Americans > 60 (> 60)
[2018-01-08] MEDS: Artificial Tears SOLN 15 ML BOTTLE BOTH EYES SCH ×3 (06:50→12:47)
[2018-01-08] MEDS: Budesonide/Formoterol 160/4.5 1 PUFF INH IH SCH ×2 (07:21→19:51)
--- NOTE | 2018-01-08 08:45 | Internal Med Progress Note ---
Hospitalist Progress Note - Encounter Date of Encounter: 01/08/18 Time of Encounter: 10:40 - Subjective Interval History: Dyspnea decreased, near baseline On 4 L/NC at baseline Right foot and leg pain > left leg pain, present at rest ad worsens with exertion still smokes 6-8 cig a day, counseled - Exam Vitals: Temp Pulse Resp BP Pulse Ox 98.7 F 109 19 139/69 93 01/08/18 08:19 01/08/18 08:19 01/08/18 08:19 01/08/18 08:19 01/08/18 08:19 Exam: no distress chronically ill appearing 4 L/NC no icterus moist oral mucosa fair air entry bilaterally, some end expiratory wheezing S1, S2, no MRG, Soft, NT, ND, no guarding or rebound 1+ LE edema hyperpigmentaiton ulcer on forefoot under bandage not removed, ulcer on heel alert, oriented, no dysarthria or gross focal deficits - Assessment and Plan (1) Acute and chronic respiratory failure Current Visit: Yes Status: Acute (2) COPD exacerbation Current Visit: Yes Status: Acute (3) History of pulmonary embolism Current Visit: Yes Status: Acute (4) Foot ulceration Current Visit: Yes Status: Acute (5) PVD (peripheral vascular disease) with claudication Current Visit: No Status: Acute - Summary of Assessment and Plan Summary of Assessment and Plan: 57M with PAD, severe COPD, HFpEF presented from [facility] emergency department due to acute on chronic respiratory failure, intubated on the ventilator. Awake and alert on arrival to [place], and extubated in ICU, transferred to floor. # Acute resp failure requiring mechanical ventilation, resolved # Chronic resp failure / severe COPD with acute exacerbation / active tobacco use - noted sputum with GNR, final cultures pending - on 4 l/nc at home - Cont Solumedrol, azithromycin # Hx DVT/PE: Duplex negative for recurrent DVT, reports adherence to DOAC - cont apixaban # PAD, Hx fem-pop bypass bilateral now occluded, claudication, right foot ulcer : VS appreciated - ELVA abnormal - VS following and appreciated # Goals of care: Previously DNR-CC in 10/2017, though undecided at this visit, and full code for now. Palliative care appreciated # VTE prophy: apixaban - Time Spent with Patient Total time spent is greater than 50% in coordination of care (as documented) at patient's floor/unit and/or counseling patient: Internal Medicine: Result - Labs CBC & Chem 7: 01/08/18 05:34 01/08/18 05:34 Labs: Short CBC 01/08/18 Range/Units 05:34 WBC 8.2 (4.3-11.1) K/mcL Hgb 13.0 (12.9-16.9) g/dL Hct 42.8 (37.5-50.1) % Plt Count 238 (140-400) K/mcL Neutrophils # 7.1 (1.6-8.9) K/mcL BMP 01/08/18 05:34 Sodium 137 Potassium 3.6 Chloride 94 L Carbon Dioxide 36 H BUN 11 Creatinine 0.67 L Glucose 173 H Calcium 9.8 - ABG Interpretation ABG results: ABG ABG pH 7.38 pH Units (7.32-7.45) 01/07/18 04:46 ABG pCO2 72 mmHg (35-45) H* 01/07/18 04:46 ABG pO2 68 mmHg (85-104) L 01/07/18 04:46 ABG O2 Saturation 92 % (95-98) L 01/07/18 04:46 - Impressions Impressions Chest X-Ray 01/07/18 05:49 IMPRESSION: Mild pulmonary vascular congestion which appears slightly more prominent. Endotracheal tube located 5 cm above the maria g. Suggest advancement of the nasogastric tube by 10 cm. D/ / 01/07/2018 08:07:32 Reyes Yost MD / Shanice Biggs Interpreting Provider: Reyes Yost MD Consult Discharge Plan - Plan Referrals: NONE,PCP [Primary Care Provider] - (1) Acute and chronic respiratory failure Qualifiers: Respiratory failure complication: hypoxia and hypercapnia Qualified Code(s): J96.21 - Acute and chronic respiratory failure with hypoxia; J96.22 - Acute and chronic respiratory failure with hypercapnia (4) Foot ulceration Qualifiers: Laterality: right
[2018-01-08] MEDS: FentaNYL (PF) 1,000 MCG in 0.9 % Sodium Chloride 80 ML IVC SCH (10:14)
[2018-01-08] MEDS: Insulin LISPRO 300 UNITS/3 ML VIAL SQ SCH ×4 (10:14→17:31)
[2018-01-08] MEDS: Chlorhexidine Rinse 15 ML MOUTHWASH MM SCH (10:15)
[2018-01-08] MEDS: Apixaban 5 MG TABLET PO SCH ×2 (10:15→20:16)
[2018-01-08] MEDS: Aspirin 81 MG TAB.CHEW PO SCH (10:15)
[2018-01-08] MEDS: Gabapentin 300 MG CAPSULE PO SCH ×3 (10:15→20:16)
[2018-01-08] MEDS: Sennosides/Docusate Sodium TABLET PO SCH ×2 (10:15→20:16)
[2018-01-08] MEDS: Pantoprazole 40 MG VIAL IVP SCH (10:16)
[2018-01-08] MEDS: Dexmedetomidine HCl 400 MCG/100 ML MLS IVC SCH (12:35)
--- NOTE | 2018-01-08 16:24 | Vascular/[facility] Progress Note ---
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 He is recently undergone bilateral femoral to popliteal artery bypasses with saphenous vein as well as bilateral femoral to popliteal artery bypass graft with PTFE. His grafts are known to be chronically occluded. The patient has right foot ulcers. His TCP O2 levels are consistent with healing. It is recommended that he continue with local wound care. He may benefit from referral to the wound center. Regarding his severe peripheral vascular disease , he is no signs or symptoms of acute limb threatening ischemia. He will be discharged from a vascular perspective. He will need to follow-up in vascular clinic for further discussion regarding revascularization options. His comorbidities and ongoing tobacco abuse make him a high risk for any surgical procedures. He was reminded to seek immediate medical attention for any signs or symptoms of acute limb ischemia. 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 (4) Tobacco abuse Current Visit: No Status: Chronic The patient was counseled again regarding smoking cessation. He was reminded that continued smoking would likely worsen his atherosclerosis and associated complications including heart attack, stroke, limb loss, or uvular and/or . (5) COPD (chronic obstructive pulmonary disease) Current Visit: No Status: Chronic The patient has severe COPD. He is currently on hospice care. He appears to be a poor candidate for general anesthesia. Qualifiers: COPD type: emphysema Emphysema type: panlobular Qualified Code(s): J43.1 - Panlobular emphysema - Subjective Interval history: The patient is alert and resting company. He denies any acute onset rest pain or gangrene. He denies any fevers or chills. He denies any chest pain or shortness of breath. Vital Signs, Last 4 Hours Resp Pulse Ox 01/08/18 16:04 19 94 - Physical Examination General: Present: Conversant, No Apparent Distress HEENT: Present: Pupils equal Cardiac: Present: Reg Rate and Rhythm Lungs: Present: Normal Breath Sounds, No Wheeze, Rales, Rhonchi Neuro: Present: Alert and responsive, No focal deficits noted Vascular: Present: Normal capillary refill, Pulse, diminished (He will signals present bilaterally). Absent: Cyanosis Abdomen: Present: Soft Skin: Present: Wound/ulcer(s) (Right dorsal foot ulcer and right heel crack without surrounding erythema or drainage. No fluctuance noted.) Results 01/08/18 05:34 01/08/18 05:34 Lab Results, Last 24 hours 01/08/18 01/08/18 05:34 05:34 WBC 8.2 Hgb 13.0 Hct 42.8 Plt Count 238 Sodium 137 Potassium 3.6 Chloride 94 L Carbon Dioxide 36 H BUN 11 Creatinine 0.67 L Glucose 173 H Calcium 9.8 - Imaging / Other Tests Non Invasive Vascular Testing: report reviewed, image reviewed (TCP O2 is are consistent with healing bilaterally. The bilateral ABIs are consistent with severe disease.) Consult Discharge Plan - Plan Referrals: NONE,PCP [Primary Care Provider] -
[2018-01-08] MEDS ORDERED: Insulin LISPRO 300 UNITS/3 ML VIAL SQ SCH (21:00)
[2018-01-08] MEDS: MethylPREDNISolone 40 MG/ML VIAL IVP SCH (22:09)
[2018-01-09] MEDS: Ipratropium/Albuterol Neb 3 ML IH SCH ×5 (04:34→22:22)
[2018-01-09] MEDS: *HR* OxyCODONE Immed Rel 5 MG TABLET PO PRN ×4 (04:35→23:50)
[2018-01-09 05:15] LABS: BUN/Creatinine Ratio 19 (6-26); Blood Urea Nitrogen 12 mg/dL (6-20); Calcium 9.7 mg/dL (8.6-10.3); Carbon Dioxide 35 mEq/L (23-29); Chloride 96 mEq/L (98-107); Glucose 165 mg/dL (70-105); Osmolality,Calculated 291 (280-300); Potassium 3.5 mEq/L (3.5-5.1); Sodium 139 mEq/L (136-145); eGFR For Non-African Americans > 60 (> 60)
[2018-01-09] MEDS: Budesonide/Formoterol 160/4.5 1 PUFF INH IH SCH ×2 (07:46→22:22)
[2018-01-09] MEDS: Azithromycin 500 MG in D5% in Water 250 ML IVPB SCH (08:24)
[2018-01-09] MEDS: Pantoprazole 40 MG VIAL IVP SCH (08:25)
[2018-01-09] MEDS: Sennosides/Docusate Sodium TABLET PO SCH ×2 (08:25→21:00)
[2018-01-09] MEDS: MethylPREDNISolone 40 MG/ML VIAL IVP SCH (08:25)
[2018-01-09] MEDS: Gabapentin 300 MG CAPSULE PO SCH ×3 (08:26→21:00)
[2018-01-09] MEDS: Aspirin 81 MG TAB.CHEW PO SCH (08:26)
[2018-01-09] MEDS: Apixaban 5 MG TABLET PO SCH ×2 (08:26→21:00)
[2018-01-09] MEDS: Insulin LISPRO 300 UNITS/3 ML VIAL SQ SCH ×3 (08:30→17:38)
--- NOTE | 2018-01-09 13:35 | Internal Med Progress Note ---
Hospitalist Progress Note - Encounter Date of Encounter: 01/09/18 Time of Encounter: 13:26 - Subjective Interval History: Dyspnea decreased, at baseline now On 4 L/NC at baseline Right foot and leg pain > left leg pain, present at rest ad worsens with exertion still smokes 6-8 cig a day, counseled on 01/08 - Exam Vitals: Temp Pulse Resp BP Pulse Ox 98.6 F 107 18 152/73 97 01/09/18 13:19 01/09/18 13:19 01/09/18 13:19 01/09/18 13:19 01/09/18 13:19 Exam: no distress chronically ill appearing 4 L/NC no icterus moist oral mucosa fair air entry bilaterally, some end expiratory wheezing S1, S2, no MRG, Soft, NT, ND, no guarding or rebound 1+ LE edema hyperpigmentaiton ulcer on forefoot under bandage and ulcer on right heel alert, oriented, no dysarthria or gross focal deficits - Assessment and Plan (1) Acute and chronic respiratory failure Current Visit: Yes Status: Acute (2) COPD exacerbation Current Visit: Yes Status: Acute (3) History of pulmonary embolism Current Visit: Yes Status: Acute (4) Foot ulceration Current Visit: Yes Status: Acute (5) PVD (peripheral vascular disease) with claudication Current Visit: No Status: Acute - Summary of Assessment and Plan Summary of Assessment and Plan: 57M with PAD, severe COPD, HFpEF presented from [facility] emergency department due to acute on chronic respiratory failure, intubated on the ventilator. Awake and alert on arrival to [place], and extubated in ICU, transferred to floor. # Acute resp failure requiring mechanical ventilation, resolved # Chronic resp failure / severe COPD with acute exacerbation / active tobacco use - noted sputum with E.coli, unclear significance as he has returned ot baseline with azithromycin - on 4 l/nc at home - s/p azithromycin (01/07-01/09) - Switch Solumedrol to PO prednisone, intend short taper (01/07- ) # Hx DVT/PE: Duplex negative for recurrent DVT, reports adherence to DOAC - cont apixaban # PAD, Hx fem-pop bypass bilateral now occluded, claudication, right foot ulcer : VS appreciated - ELVA abnormal, VS plans OP follow up - noted on Plavix # Goals of care: Previously DNR-CC in 10/2017, though undecided at this visit, and full code for now. Palliative care appreciated # VTE prophy: apixaban # Disposition: PT/OT evaluation, may need new SNF (apparently insurance no longer covers stay at prior SNF) No AM labs indicated - Time Spent with Patient Total time spent is greater than 50% in coordination of care (as documented) at patient's floor/unit and/or counseling patient: Internal Medicine: Result - Labs CBC & Chem 7: 01/08/18 05:34 01/09/18 04:04 Labs: BMP 01/09/18 04:04 Sodium 139 Potassium 3.5 Chloride 96 L Carbon Dioxide 35 H BUN 12 Creatinine 0.64 L Glucose 165 H Calcium 9.7 - ABG Interpretation ABG results: ABG ABG pH 7.38 pH Units (7.32-7.45) 01/07/18 04:46 ABG pCO2 72 mmHg (35-45) H* 01/07/18 04:46 ABG pO2 68 mmHg (85-104) L 01/07/18 04:46 ABG O2 Saturation 92 % (95-98) L 01/07/18 04:46 Consult Discharge Plan - Plan Referrals: NONE,PCP [Primary Care Provider] - (1) Acute and chronic respiratory failure Qualifiers: Respiratory failure complication: hypoxia and hypercapnia Qualified Code(s): J96.21 - Acute and chronic respiratory failure with hypoxia; J96.22 - Acute and chronic respiratory failure with hypercapnia (4) Foot ulceration Qualifiers: Laterality: right
[2018-01-10] MEDS: Ipratropium/Albuterol Neb 3 ML IH SCH ×5 (00:19→15:41)
[2018-01-10] MEDS: *HR* OxyCODONE Immed Rel 5 MG TABLET PO PRN ×2 (05:49→11:45)
[2018-01-10] MEDS: Scopolamine Patch 1.5 MG PATCH.TD72 TD SCH (05:49)
[2018-01-10] MEDS: Budesonide/Formoterol 160/4.5 1 PUFF INH IH SCH (07:34)
[2018-01-10] MEDS: Aspirin 81 MG TAB.CHEW PO SCH (08:57)
[2018-01-10] MEDS: Gabapentin 300 MG CAPSULE PO SCH ×2 (08:57→15:54)
[2018-01-10] MEDS: Apixaban 5 MG TABLET PO SCH (08:57)
[2018-01-10] MEDS: Sennosides/Docusate Sodium TABLET PO SCH (08:57)
[2018-01-10] MEDS: Insulin LISPRO 300 UNITS/3 ML VIAL SQ SCH ×2 (08:58→11:44)
[2018-01-10] MEDS ORDERED: predniSONE 20 MG TABLET PO SCH (09:00)
--- NOTE | 2018-01-10 10:47 | Palliative Progress Note ---
<Kerri Torre N - Last Filed: 01/10/18 11:23> Date of Encounter: 01/10/18 Time of Encounter: 10:45 - Assessment and plan (1) Goals of care, counseling/discussion Current Visit: Yes Status: Acute Assessment and plan: Resumed goals of care discussion with Mr. Yepez. He is irate and agitated, stating that he does not understand why he is still in the hospital. When asked what his discharge plans are, he states that he is going back to the retirement with hospice. He states that hospice means that "everybody will just leave me alone". He expressly denied wanting CPR or other resuscitative measures. He states that he would not want to be intubated again in the future, stating " they tricked me last week". He does state that he only wants comfort care measures. He expresses that his code status is DNR-CC; however, he refuses to sign any DNR paperwork at this time, and states that he will only do so once he is back at the retirement. [facility] was contacted this morning in regards to Mr. Yepez, and they did confirm that he is a hospice patient under their care while in the retirement. Will follow up with them with regards to today's goals of care discussion. (2) COPD exacerbation Current Visit: Yes Status: Acute Assessment and plan: Patient denies any worsening respiratory status. He denies any increased work of breathing or shortness of breath. Sputum culture was significant for the presenoce of E. coli ESBL. He is not currently on antibiotic therapy. He denies any sputum production or cough. Patient has been transitioned to oral steroids and has completed azithromycin therapy. Continue with symbicort and duonebs as scheduled. (3) History of pulmonary embolism Current Visit: Yes Status: Acute Assessment and plan: Lower extremity vascular ultrasound did not show any evidence of an acute DVT. Patient has had no worsening of his lower extremity edema since admission. Will continue anticoagulation therapy with eliquis 5mg BID. (4) PVD (peripheral vascular disease) with claudication Current Visit: No Status: Acute Assessment and plan: Patient was assessed by vascular surgery. He did undergo vascular grafting in the past; however, these are now noted to be occluded. He underwent ELVA and TCP O2 testing. Per vascular surgery note, he does not appear to be having any acute limb ischemia, and would be high risk for any further surgical intervention. Per their recommendations, patient is to continue with local wound care. Will continue symptomatic management with gabapentin and oxycodone. Patient reports adequate pain management with this regimen when he is able to get his medications on time. (5) CHF (congestive heart failure) Current Visit: Yes Status: Acute Assessment and plan: Patient does not appear to be having an acute CHF exacerbation. Plan to continue monitoring, with possible addition of antidiuretic therapy if he begins to appear fluid overloaded. Qualifiers: Heart failure type: systolic Heart failure chronicity: chronic Qualified Code(s): I50.22 - Chronic systolic (congestive) heart failure - Time Spent With Patient Total time spent is greater than 50% in coordination of care (as documented) at patient's floor/unit and/or counseling patient: - Subjective Interval history: Mr. Yepez was assessed today with regards to further goals of care discussion. He is very irate, and expresses a great deal of frustration regarding his continued hospitalization. He states that he just wants to go home, and says that "the other doctor" said he would be leaving by noon today. He expresses frustration regarding having to wait to receive his pain medication, stating that it took "over two hours" yesterday from the time he requested his medication to the time that he received it. He denies any acute pain or shortness of breath at this time. Nursing staff denies any acute overnight events. - Constitutional Vitals: Abnormal lab results MCV 100.5 fL (83.0-100.0) H 01/08/18 05:34 MCHC 30.4 g/dL (31.6-35.5) L 01/08/18 05:34 RDW 15.3 % (11.5-14.5) H 01/08/18 05:34 ABG pCO2 72 mmHg (35-45) H* 01/07/18 04:46 ABG pO2 68 mmHg (85-104) L 01/07/18 04:46 ABG HCO3 43 mEq/L (21-27) H 01/07/18 04:46 ABG Total CO2 45 mEq/L (20-26) H 01/07/18 04:46 ABG O2 Saturation 92 % (95-98) L 01/07/18 04:46 ABG Base Excess 13 mEq/L (-2 to 3) H 01/07/18 04:46 Chloride 96 mEq/L (98-107) L 01/09/18 04:04 Carbon Dioxide 35 mEq/L (23-29) H 01/09/18 04:04 Creatinine 0.64 mg/dL (0.70-1.30) L 01/09/18 04:04 Glucose 165 mg/dL (70-105) H 01/09/18 04:04 POC Glucose 182 mg/dL (70-99) H 01/09/18 20:26 Exam: GENERAL: Obese male lying in bed in no acute distress. He is irate and agitated. HEENT: Atraumatic and normocephalic. Nasal canula in place. CARDIOVASCULAR: Regular rate and rhythm. S1 and S2 present. No murmurs, gallops , or rubs. RESPIRATORY: CTA bilaterally. No wheezes, rales, or rhonchi present. No accessory muscle use noted. GASTROINTESTINAL: Active bowel sounds present x 4 quadrants. Abdomen is distended but soft and nontender. MUSCULOSKELETAL: Skin changes consistent with chronic venous stasis present in bilateral lower extremities. Bandage present on right foot. NEUROLOGICAL: Alert and oriented. Answers questions appropriately. Patient moves all four extremities spontaneously. No apparent focal deficits. Palliative Quality Palliative Quality: Screen for Code Status: Yes (Patient states he wants to be DNR-CC, but refuses to sign anything until back at the retirement.), Screen for Goals of Care: Yes, Screen for Pain: Yes, If Pain Regimen Started, Initiate Bowel Regimen: Yes, Screen for Nausea/Vomitting: Yes Code Status: 01/07/18 04:42 Resuscitation Status: Active [RES] Routine Comment: Resuscitation Status: DNR-Comfort Care 01/07/18 05:20 CODE [Resuscitation Status: Active] [RES] Routine Comment: Resuscitation Status: [id number] CODE [Resuscitation Status: Active] [RES] Routine Comment: Resuscitation Status: Full Code 01/07/18 13:39 CODE [Resuscitation Status: Active] [RES] Routine Comment: Resuscitation Status: Full Code - Labs CBC & Chem 7: 01/08/18 05:34 01/09/18 04:04 Labs: Laboratory Results - last 24 hr 01/08/18 01/09/1818 21:01 08:27 11:55 POC Glucose 203 H 201 H 196 H 01/09/18 01/09/18 16:51 20:26 POC Glucose 170 H 182 H - ABG Interpretation ABG results: ABG ABG pH 7.38 pH Units (7.32-7.45) 01/07/18 04:46 ABG pCO2 72 mmHg (35-45) H* 01/07/18 04:46 ABG pO2 68 mmHg (85-104) L 01/07/18 04:46 ABG O2 Saturation 92 % (95-98) L 01/07/18 04:46 Consult Discharge Plan - Plan Referrals: NONE,PCP [Primary Care Provider] - <Karlie Madrigal - Last Filed: 01/10/18 14:05> Date of Encounter: 01/10/18 - Time Spent With Patient Total time spent is greater than 50% in coordination of care (as documented) at patient's floor/unit and/or counseling patient: - Constitutional Vitals: Abnormal lab results MCV 100.5 fL (83.0-100.0) H 01/08/18 05:34 MCHC 30.4 g/dL (31.6-35.5) L 01/08/18 05:34 RDW 15.3 % (11.5-14.5) H 01/08/18 05:34 ABG pCO2 72 mmHg (35-45) H* 01/07/18 04:46 ABG pO2 68 mmHg (85-104) L 01/07/18 04:46 ABG HCO3 43 mEq/L (21-27) H 01/07/18 04:46 ABG Total CO2 45 mEq/L (20-26) H 01/07/18 04:46 ABG O2 Saturation 92 % (95-98) L 01/07/18 04:46 ABG Base Excess 13 mEq/L (-2 to 3) H 01/07/18 04:46 Chloride 96 mEq/L (98-107) L 01/09/18 04:04 Carbon Dioxide 35 mEq/L (23-29) H 01/09/18 04:04 Creatinine 0.64 mg/dL (0.70-1.30) L 01/09/18 04:04 Glucose 165 mg/dL (70-105) H 01/09/18 04:04 POC Glucose 182 mg/dL (70-99) H 01/09/18 20:26 - Attending Attestation I was present with resident Dr. Torre during the history and exam, and I conducted the goals o care discussion with patient and resident. I discussed the case with the resident and agree with the findings and plan as documented in the resident's note. [facility] made aware of patient's wishes to be enrolled back in hospice once he returns to retirement. Patient is for discharge to SNF. Goals of care are clear. Thanks for allowing us to participate in the care of this patient, Palliative care will sign off. Palliative Quality Code Status: 01/07/18 04:42 Resuscitation Status: Active [RES] Routine Comment: Resuscitation Status: DNR-Comfort Care 01/07/18 05:20 CODE [Resuscitation Status: Active] [RES] Routine Comment: Resuscitation Status: [id number] CODE [Resuscitation Status: Active] [RES] Routine Comment: Resuscitation Status: Full Code 01/07/18 13:39 CODE [Resuscitation Status: Active] [RES] Routine Comment: Resuscitation Status: Full Code - Labs CBC & Chem 7: 01/08/18 05:34 01/09/18 04:04 Labs: Laboratory Results - last 24 hr 01/08/18 01/09/18 01/09/18 21:01 08:27 11:55 POC Glucose 203 H 201 H 196 H 01/09/18 01/09/18 16:51 20:26 POC Glucose 170 H 182 H - ABG Interpretation ABG results: ABG ABG pH 7.38 pH Units (7.32-7.45) 01/07/18 04:46 ABG pCO2 72 mmHg (35-45) H* 01/07/18 04:46 ABG pO2 68 mmHg (85-104) L 01/07/18 04:46 ABG O2 Saturation 92 % (95-98) L 01/07/18 04:46
--- NOTE | 2018-01-10 13:11 | Discharge Summary ---
- NOTES TO OUTPATIENT PROVIDER Notes to Outpatient Provider: PCP in one week. Date of Encounter: 01/10/18 Time of Encounter: 13:05 - Discharge Diagnosis (1) Acute and chronic respiratory failure Priority: Primary Status: Acute Assessment and Plan: Acute resp failure requiring mechanical ventilation, resolved. Chronic resp failure / severe COPD with acute exacerbation / active tobacco use. Sputum grew Ecoli and retunred to baseline on Azithromycin. On 4 L NC at home. Switch Solumedrol to PO prednisone, intend short taper (01/07/2018). Prognosis guarded. He was seen by palliative crae He expresses that his code status is DNR-CC; however, he refuses to sign any DNR paperwork at this time, and states that he will only do so once he is back [facility] the [facility] Qualifiers: Respiratory failure complication: hypoxia and hypercapnia Qualified Code(s) : J96.21 - Acute and chronic respiratory failure with hypoxia; J96.22 - Acute and chronic respiratory failure with hypercapnia (2) COPD exacerbation Priority: Primary Status: Acute Assessment and Plan: Pt presented with worsening resp status. He is chronically on 4L NC. Continue with Duonebs and symbicort. Sputum grew Ecoli responsive to azithromycin. Pt was transitioned to PO steroids and has completed azithromycin. (3) History of pulmonary embolism Priority: Secondary Status: Acute Assessment and Plan: Duplex negative for recurrent DVT, reports adherence to DOAC - cont apixaban (4) Foot ulceration Priority: Secondary Status: Acute Assessment and Plan: R heel bandaged. Follow up with wound care out pt. Qualifiers: Laterality: right Qualified Code(s): L97.511 - Non-pressure chronic ulcer of other part of right foot limited to breakdown of skin (5) PVD (peripheral vascular disease) with claudication Priority: Secondary Status: Acute Assessment and Plan: PAD, history fem-pop bypass bilateral now occluded, claudication, right foot ulcer: VS appreciated - ELVA abnormal, VS plans OP follow up - noted on Plavix. Hospital course: Mr. Yepez is a 57 year old male with past medical history of PAD, severe COPD, HFpEF presented from [facility] emergency department due to acute on chronic respiratory failure, intubated on the ventilator. Apparently the patient was transported from [facility] to [facility] due to decreased lower extremity pulses. In the emergency department the patient apparently developed shortness of breath and his respiratory status continued to decline to the point that he was intubated. Upon arrival to [place], he was reportedly awake and alert, and extubated in ICU. Discharge discussed with: patient - Time Spent with Patient Total time spent providing and/or coordinating discharge services: Greater than 30 minutes - Discharge Medications Home Medications: Albuterol Sulfate [Albuterol Inhaler] 2 puff IH Q4HR PRN 08/07/15 [History] Aspirin [Adult Low Dose Aspirin EC] 81 mg PO DAILY 08/07/15 [History] Omeprazole [PriLOSEC] 20 mg PO DAILY 08/07/15 [History] Clopidogrel [Plavix] 75 mg PO DAILY #30 tablet 09/20/15 [Rx] Oxygen 4 l NS AD 12/19/15 [History] Aclidinium Bennett [Tudorza Pressair] 400 mcg IH BID 11/09/16 [History] Ipratropium/Albuterol Neb [Duoneb] 3 ml IH Q4H PRN #120 aerosol 11/13/16 [Rx] Budesonide/Formoterol 160/4.5 [Symbicort 160/4.5] 1 puff IH BIDR 09/07/17 [ History] Furosemide [Lasix] 40 mg PO DAILY 09/07/17 [History] Apixaban [Eliquis] 5 mg PO BID 01/07/18 [History] Atorvastatin [Lipitor] 40 mg PO HS 01/07/18 [History] Insulin ASPART [Novolog Flexpen] 0 unit SQ DAILY 01/07/18 [History] Losartan Potassium [Cozaar] 50 mg PO DAILY 01/07/18 [History] Metoprolol Tartrate [Lopressor] 50 mg PO DAILY 01/07/18 [History] Potassium Chloride [Klor-Con 10] 10 meq PO BID 01/07/18 [History] Zolpidem [Ambien] 5 mg PO DAILY PRN 01/07/18 [History] amLODIPine [Norvasc] 5 mg PO DAILY 01/07/18 [History] Allergies/Adverse Reactions: 3 Allergy/AdvReac Type Severity Reaction Status Date / Time No Known Allergies Allergy Verified 01/07/18 11:10 Date of admission: 01/07/18 04:42 Primary care physician: PCP NONE Consults: 01/07/18 04:45 Consult to Palliative Care [CONS] Routine Comment: Consulting Provider: Palliative Care [place] Reason for Consult: Patient intubated at [facility], upon arrival DNRCC paperwork was brought with the patient Call Completed: No 01/07/18 05:07 Consult to Critical Care [CONS] Routine Consulting Provider: Pulm Crit Care & Sleep [place] Reason for Consult: Severe COPD exacerbation Call Completed: Yes 01/07/18 05:10 Consult to Vascular Surgery [CONS] Routine Consulting Provider: Vascular Surgery [place] Reason for Consult: decreased LE pulses, history of PAD Call Completed: Yes 01/07/18 08:56 Consult to Wound Care [CONS] Routine Reason for Consult: Stage II ulceration of right dorsum of foot Time Notified: 08:59 Call Completed: No 01/07/18 14:20 Consult to Physical Therapy [CONS] Routine Comment: Evaluate, develop and implement POC Reason for Consult: Physical deconditioning Does patient have active BEDREST order?: No Is patient medically & hemodynamically stable?: Yes 01/07/18 14:21 Consult to Occupational Therapy [CONS] Routine Comment: Evaluate, develop and implement POC Reason for Consult: Physical deconditioning Does patient have active BEDREST order?: No Is patient medically & hemodynamically stable?: Yes Discharging clinician: Stella Ceron Anticipated date of discharge: 01/10/18 - Constitutional Vitals: Temp Pulse Resp BP Pulse Ox 98.1 F 95 18 153/81 94 01/10/18 11:19 01/10/18 11:19 01/10/18 11:43 01/10/18 11:19 01/10/18 11:43 General appearance: Present: A&O X 3, morbidly obese, no acute distress Exam: . - Head Head exam: Present: atraumatic, normocephalic - Eye Eye exam: Present: PERRL, conjuntiva pink, sclera anicteric Pupils: Present: PERRL - Neck Neck exam general surgery: Present: supple, trachea midline. Absent: lymphadenopathy - Respiratory Respiratory exam: Present: CTAB, wheezes. Absent: accessory muscle use, rales, rhonchi - Cardiovascular Cardiovascular exam: Present: RRR, +S1, +S2. Absent: diastolic murmur, gallop, rubs, systolic murmur - GI/Abdominal GI/Abdominal exam: Present: normal bowel sounds, soft, no peritoneal signs. Absent: distended, tenderness - Extremities Exam Extremities exam: Present: pedal edema, warm, radial pulses palpable and symmetrical. Absent: calf tenderness, cyanotic - Neurological Exam Neurological exam: Present: CN II-XII intact, oriented X3, no focal deficits. Absent: pronater drift, facial droop, speech deficit - Skin Skin exam: Present: dry, intact Additional comments: ulcer R heel - Patient Status Disposition: Transfer SNF Condition: Fair Overall status at discharge: patient is not back to baseline - Discharge Instructions Follow Up With: NONE,PCP [Primary Care Provider] - - Diet and Activity Activity: as per physical therapy, increase activity as tolerated Diet: low fat, low cholesterol, low salt diet
--- NOTE | 2018-01-10 14:47 | Physician Discharge Referral ---
[facility] Referral Info Provider in Charge after Transfer: PCP - Diagnosis (1) Acute and chronic respiratory failure Status: Acute (2) COPD exacerbation Status: Acute (3) History of pulmonary embolism Status: Acute (4) Foot ulceration Status: Acute (5) PVD (peripheral vascular disease) with claudication Status: Acute - Transfer Medications Home Medications: Albuterol Sulfate [Albuterol Inhaler] 2 puff IH Q4HR PRN 08/07/15 [History] Aspirin [Adult Low Dose Aspirin EC] 81 mg PO DAILY 08/07/15 [History] Omeprazole [PriLOSEC] 20 mg PO DAILY 08/07/15 [History] Clopidogrel [Plavix] 75 mg PO DAILY #30 tablet 09/20/15 [Rx] Oxygen 4 l NS AD 12/19/15 [History] Aclidinium [place] [Tudorza Pressair] 400 mcg IH BID 11/09/16 [History] Ipratropium/Albuterol Neb [Duoneb] 3 ml IH Q4H PRN #120 aerosol 11/13/16 [Rx] Budesonide/Formoterol 160/4.5 [Symbicort 160/4.5] 1 puff IH BIDR 09/07/17 [ History] Furosemide [Lasix] 40 mg PO DAILY 09/07/17 [History] Apixaban [Eliquis] 5 mg PO BID 01/07/18 [History] Atorvastatin [Lipitor] 40 mg PO HS 01/07/18 [History] Insulin ASPART [Novolog Flexpen] 0 unit SQ DAILY 01/07/18 [History] Losartan Potassium [Cozaar] 50 mg PO DAILY 01/07/18 [History] Metoprolol Tartrate [Lopressor] 50 mg PO DAILY 01/07/18 [History] Potassium Chloride [Klor-Con 10] 10 meq PO BID 01/07/18 [History] Zolpidem [Ambien] 5 mg PO DAILY PRN 01/07/18 [History] amLODIPine [Norvasc] 5 mg PO DAILY 01/07/18 [History] predniSONE [PredniSONE] 40 mg PO DAILY tablet 01/10/18 [Rx] Allergies/Adverse Reactions: 3 Allergy/AdvReac Type Severity Reaction Status Date / Time No Known Allergies Allergy Verified 01/07/18 11:10 - Respiratory Orders Oxygen / L per min Smoking Cessation: Smoking cessation has been advised. For more information, call the [place] Tobacco Quit Line at 4-719-BWBV-NOW. 4L [place] - Advance Directives Code Status: DNR-Arrest - Rehabiliation Orders Rehab Potential: Fair CERTIFICATION: I certify that the transfer of the above named patient to an Extended Care Facility is necessary for the continuing treatment of the diagnosis listed. The above information is true and accurate reflection of patient's current condition. Confidential - Redisclosure prohibited without a patient's written consent.
[2018-01-10 16:33] VITALS: BP 147/85
[2018-01-10] MEDS ORDERED: Insulin LISPRO 300 UNITS/3 ML VIAL SQ SCH (21:00)
== END 2018-01-10 17:49 | DRG 133 ==
LOC: ICNU → 2ANU 17:13
PROVIDERS: ADMIT Internal Medicine; ATTEND Internal Medicine